=== PATIENT | male | born 1940 | race Caucasian/White ===

== ENCOUNTER 2016-05-11 12:09 | Outpatient (CLI) | payer MEDICARE, OTHER ==
[2016-05-11] MEDS ORDERED: NORMAL SALINE 1000 ML 1,000 ML IV PRN (12:47)
[2016-05-11] MEDS ORDERED: ACETAMINOPHEN 325 MG TABLET PO PRN (12:47)
[2016-05-11 12:48] LABS: HEMATOCRIT 26.9 % (37.9-51.0); HEMOGLOBIN 8.9 g/dL (13.5-17.0); HGB HCT DIFFERENCE -0.2; MEAN CORPUSCULAR HEMOGLOBIN 31.1 pg (27.0-33.4); MEAN CORPUSCULAR VOLUME 94 fl (80-97); RED BLOOD COUNT 2.86 10^6/uL (4.35-5.55); RED CELL DISTRIBUTION WIDTH 23.2 % (11.5-14.0)
[2016-05-11] MEDS ORDERED: FUROSEMIDE INJ/PF 20 MG/2 ML SDV IV PRN (12:48)
[2016-05-11] MEDS ORDERED: DIPHENHYDRAMINE HCL 25 MG CAPSULE PO PRN (12:48)
[2016-05-11 13:21] VITALS: BP 140/79
[2016-05-11] MEDS ORDERED: ACETAMINOPHEN 325 MG TABLET ONE (13:34)
[2016-05-11] MEDS ORDERED: DIPHENHYDRAMINE HCL 25 MG CAPSULE ONE (13:35)
[2016-05-11 19:03] LABS: APPEARANCE,URINE SLIGHTLY-CLOUDY; BILIRUBIN,URINE NEGATIVE (NEGATIVE); GLUCOSE, URINE NEGATIVE (NEGATIVE); KETONES,URINE NEGATIVE (NEGATIVE); LEUKOCYTE ESTERASE,URINE MODERATE (NEGATIVE); NITRITE,URINE NEGATIVE (NEGATIVE); PROTEIN,URINE NEGATIVE (NEGATIVE); URINE SPECIFIC GRAVITY 1.014; UROBILINOGEN,URINE NEGATIVE mg/dL (<2.0)
== END 2016-05-11 14:45 | disposition other institution (70) ==
LOC: II 12:09 → 2N 12:12 → II 14:45
PROVIDERS: ATTEND Internal Medicine Medical Oncology
PROC: 30243R1 Transfusion of Nonautologous Platelets into Central Vein, Percutaneous Approach (ICD-10-PCS; principal; 2016-05-11)
DX: D70.1 Agranulocytosis secondary to cancer chemotherapy (principal); D69.6 Thrombocytopenia, unspecified; C34.90 Malignant neoplasm of unspecified part of unspecified bronchus or lung; R11.0 Nausea; R41.82 Altered mental status, unspecified
CPT/HCPCS: 86900; 86901; 36415; 36430; 81002; P9035; A9270 ×2

== ENCOUNTER 2016-05-11 14:51 | Observation (INO) | payer MEDICARE, OTHER ==
[2016-05-11] MEDS ORDERED: DIPHENHYDRAMINE HCL 50 MG/ML VIAL IV ONE (14:59)
[2016-05-11] MEDS ORDERED: METHYLPREDNISOLONE INJ 125 MG/2 ML SDV IV ONE (14:59)
[2016-05-11] MEDS ORDERED: FAMOTIDINE INJ/PF 20 MG/2 ML SDV IV ONE (15:00)
--- NOTE | 2016-05-11 15:33 | ER Document Report ---
[id number] PAIN Mode of Arrival: Ambulatory Information source: Patient Notes: 76 yr old male with hx of thrombocytopenia, lung ca presents with complaints of allergic reaction while being transfused. pt immediately became diaphoretic, sob , hypoxic and tachycardic Patient has received transfusions in the past iwth no reaction. platelt count was 18 today. pt given benadryl before platelet TRAVEL OUTSIDE OF THE [place] IN LAST 30 DAYS: No - HPI Onset: Just prior to arrival Onset/Duration: Sudden Quality of pain: No pain Severity: Moderate Pain Level: Denies Associated symptoms: Shortness of breath, Other Exacerbated by: Denies Relieved by: Denies Similar symptoms previously: No Recently seen / treated by doctor: Yes - Related Data Allergies/Adverse Reactions: aspirin [Aspirin] Allergy (Unknown, Verified 02/25/16 16:37) acetaminophen [From Percocet] Allergy (Verified 02/26/16 02:01) oxycodone [From Percocet] Allergy (Verified 02/26/16 02:01) Past Medical History - Social History Smoking Status: Former Smoker Cigarette use (# per day): No Chew tobacco use (# tins/day): No Smoking Education Provided: No Family History: Reviewed & Not Pertinent - Past Medical History Cardiac Medical History: Reports: Hx Hypercholesterolemia, Hx Hypertension Neurological Medical History: Denies: Hx Seizures Malignancy Medical History: Reports Hx Lung Cancer Past Surgical History: Reports: Hx Cholecystectomy, Hx Orthopedic Surgery - Knee - Immunizations Hx Diphtheria, Pertussis, Tetanus Vaccination: - unk Hx Pneumococcal Vaccination: 03/08/14 Review of Systems - Review of Systems Notes: REVIEW OF SYSTEMS: CONSTITUTIONAL : Denies fever, chills, or sweats. Denies recent illness. EENT: Denies eye, ear, throat, or mouth pain or symptoms. Denies nasal or sinus congestion or discharge. Denies throat, tongue, or mouth swelling or difficulty swallowing. CARDIOVASCULAR: Admits to chest pain shortness of breath RESPIRATORY: Admits to difficulty breathing heart racing GASTROINTESTINAL: Denies abdominal pain or distention. Denies nausea, vomiting , or diarrhea. Denies blood in vomitus, stools, or per rectum. Denies black, tarry stools. Denies constipation. GENITOURINARY: Denies difficulty urinating, painful urination, burning, frequency, blood in urine, or discharge. MUSCULOSKELETAL: Denies back or neck pain or stiffness. Denies joint pain or swelling. SKIN: Denies rash, lesions or sores. HEMATOLOGIC : Denies easy bruising or bleeding. LYMPHATIC: Denies swollen, enlarged glands. NEUROLOGICAL: Denies confusion or altered mental status. Denies passing out or loss of consciousness. Denies dizziness or lightheadedness. Denies headache. Denies weakness or paralysis or loss of use of either side. Denies problems with gait or speech. Denies sensory loss, numbness, or tingling. Denies seizures. PSYCHIATRIC: Denies anxiety or stress. Denies depression, suicidal ideation, or homicidal ideation. ALL OTHER SYSTEMS REVIEWED AND NEGATIVE. Dictation was performed using [employer] voice recognition software PHYSICAL EXAMINATION: GENERAL: Well-appearing, well-nourished and in mild distress with a rebreather HEAD: Atraumatic, normocephalic. EYES: Pupils equal round and reactive to light, extraocular movements intact, sclera anicteric, conjunctiva are normal. ENT: Nares patent, oropharynx clear without exudates. Moist mucous membranes. NECK: Normal range of motion, supple without lymphadenopathy LUNGS: Breath sounds clear to auscultation bilaterally and equal. No wheezes rales or rhonchi. Initially hypoxic HEART: Tachycardic ABDOMEN: Soft, nontender, nondistended abdomen. No guarding, no rebound. No masses appreciated. Musculoskeletal: Normal range of motion, no pitting or edema. No cyanosis. NEUROLOGICAL: Cranial nerves grossly intact. Normal speech, normal gait. Normal sensory, motor exams PSYCH: Normal mood, normal affect. SKIN: Warm, Dry, normal turgor, no rashes or lesions noted. Physical Exam - Vital signs Vitals: Resp BP Pulse Ox 20 115/72 99 05/11/16 15:18 05/11/16 15:18 05/11/16 15:18 Course - Re-evaluation Re-evalutation: 05/11/16 15:32 Patient immediately started on medications for his allergic reaction, I will watch closely for worsening symptoms Spoke with Dr Torres who requests I speak with Dr Prasad regarding patient 05/11/16 15:[address] Prasad who agrees with admission process to watch for further allergic reaction, will defer on further platelets 05/11/16 15:56 - Vital Signs Vital signs: Temp Pulse Resp BP Pulse Ox 20 115/72 99 05/11/16 15:18 05/11/16 15:18 05/11/16 15:18 Critical Care Note - Critical Care Note Total time excluding time spent on procedures (mins): 34 Comments: minutes of critical care time spent in direct contact evaluating and reevaluating the patient, treating symptoms, reviewing labs and studies and speaking with family and consultants excluding any procedures Discharge - Discharge Clinical Impression: Thrombocytopenia, acute blood transfusion reaction, Tachycardia, Hypoxemia Lung cancer Qualifiers: Laterality: unspecified laterality Lung location: unspecified part of lung Qualified Code(s): C34.90 - Malignant neoplasm of unspecified part of unspecified bronchus or lung Condition: Stable Disposition: ADMITTED OBSERVATION Admitting Provider: Sofia Unit Admitted: Telemetry Referrals: JAMAL TORRES MD [Primary Care Provider] - Follow up as needed
[2016-05-11] MEDS ORDERED: DIPHENHYDRAMINE HCL 50 MG/ML VIAL IV PRN (17:47)
[2016-05-11] MEDS ORDERED: HYDROCODONE/ACETAMINOPHEN 5-325 MG TABLET PO PRN (17:50)
[2016-05-11 17:52] LABS: HEMATOCRIT 28.5 % (37.9-51.0); HEMOGLOBIN 9.2 g/dL (13.5-17.0); HGB HCT DIFFERENCE -0.9; MEAN CORPUSCULAR HEMOGLOBIN 30.6 pg (27.0-33.4); MEAN CORPUSCULAR HGB CONC 32.4 g/dL (32.0-36.0); MEAN CORPUSCULAR VOLUME 95 fl (80-97); RED BLOOD COUNT 3.01 10^6/uL (4.35-5.55); RED CELL DISTRIBUTION WIDTH 23.1 % (11.5-14.0)
[2016-05-11 17:58] LABS: ALANINE AMINOTRANSFERASE 40 U/L (21-72); ALBUMIN 2.2 g/dL (3.5-5.0); ALKALINE PHOSPHATASE 61 U/L (38-126); ANION GAP 7 (5-19); ASPARTATE AMINO TRANSFERASE 46 U/L (17-59); BILIRUBIN,TOTAL 0.7 mg/dL (0.2-1.3); BLOOD UREA NITROGEN 16 mg/dL (7-20); CALCIUM 7.4 mg/dL (8.4-10.2); CARBON DIOXIDE 25 mmol/L (22-30); CHLORIDE 105 mmol/L (98-107); CREATININE RESULT 1.13 mg/dL (0.52-1.25); GLUCOSE 150 mg/dL (75-110); POTASSIUM 3.7 mmol/L (3.6-5.0); SODIUM 137.1 mmol/L (137-145); TOTAL PROTEIN 4.5 g/dL (6.3-8.2)
[2016-05-11 18:08] LABS: BAND NEUTROPHILS % (MANUAL) 2 % (3-5); BASOPHILS % (MANUAL) 0 % (0-2); EOSINOPHILS % (MANUAL) 0 % (0-6); LYMPHOCYTES % (MANUAL) 11 % (13-45); TOTAL CELLS COUNTED 100
[2016-05-11 18:11] LABS: ANISOCYTOSIS 2+; OVALOCYTES SLIGHT; POIKILOCYTOSIS 1+; TEAR DROP CELLS SLIGHT; TOXIC GRANULATION SLIGHT
--- NOTE | 2016-05-11 18:18 | PDOC H&P ---
History of Present Illness Admission Date/PCP: 05/11/16 16:08 JAMAL FABIOLACarissa Patient complains of: Chest pain, Shortness of brreath History of Present Illness: KAMINI DIAMOND is a 76 year old male transferred to ED due to acute development of reported chest pain, tachycardia, shortness of breath, hypoxemia and diaphoresis during transfusion with platelet due to reported thrombocytopenia with platelet count of 18,000 earlier today. His transfusion was immediately discontinued and he was brought to the ED for further evaluation and management. Spouse reported that patient likewise received Neulasta and Epogen earlier today. His last chemotherapy for lung cancer was 01/2017 at [facility] under directive of Dr Prasad his medical oncologist. Patient did received pre-transfusion Benadryl and had so far received IV Solu-Medrol, Famotidine and Diphehydramine in ED. Spouse and patient reported significant swelling to lower extremities in the last couple of days. There is associated coughing spells that improved with Tessalon perles. Patient is currently on Levofloxacin therapy for probable upper respiratory infection. He denied definite fever but claimed been cold all the time. He admitted to nausea but no vomiting. P.o intake is fair. No reported diarrhea or symptoms suggestive of ongoing urinary tract infection. Past Medical History Cardiac Medical History: Reports: Hyperlipidema, Hypertension Pulmonary Medical History: Reports: Other - Lung cancer Neurological Medical History: Denies: Seizures Malignancy Medical History: Reports: Lung Cancer Past Surgical History Past Surgical History: Reports: Cholecystectomy, Orthopedic Surgery - Knee Social History Smoking Status: Former Smoker Frequency of Alcohol Use: None Hx Recreational Drug Use: No Hx Prescription Drug Abuse: No - Advance Directive Resuscitation Status: Full Code Family History Family History: Reviewed & Not Pertinent Parental Family History Reviewed: Yes Children Family History Reviewed: Yes Sibling(s) Family History Reviewed.: Yes Medication/Allergy Home Medications: Allopurinol [Zyloprim 100 mg Tablet] 100 mg PO DAILY 05/11/16 Benzonatate [Tessalon Perle 100 mg Capsule] 100 mg PO Q8HP PRN 05/11/16 Budesonide/Formoterol Fumarate [Symbicort Hfa 160-4.5 Mcg Inhaler 6 gm] 2 puff IH Q12 05/11/16 Cetirizine HCl [Zyrtec 10 mg Tablet] 10 mg PO DAILY 05/11/16 Furosemide [Lasix 20 mg Tablet] 20 mg PO QAM 05/11/16 Hydrocodone Bit/Acetaminophen [Hydrocodon-Acetaminophen 5-325] 1 tab PO Q6HP PRN 05/11/16 Ipratropium/Albuterol Sulfate [Duoneb 3 ml Ampul] 3 ml NEB RTQID 05/11/16 Levofloxacin [Levaquin 500 mg Tablet] 500 mg PO DAILY 05/11/16 Meclizine HCl 25 mg PO Q6 05/11/16 Metoprolol Succinate [Toprol Xl 25 mg Tab.sr] 25 mg PO DAILY 05/11/16 Montelukast Sodium [Singulair 10 mg Tablet] 10 mg PO DAILY 05/11/16 Ropinirole HCl [Requip] 0.5 mg PO QHS 05/11/16 Rosuvastatin Calcium [Crestor 10 mg Tablet] 10 mg PO DAILY 05/11/16 Tramadol HCl 50 mg PO Q8HP PRN 05/11/16 Allergies/Adverse Reactions: aspirin [Aspirin] Allergy (Unknown, Verified 02/25/16 16:37) acetaminophen [From Percocet] Allergy (Verified 02/26/16 02:01) oxycodone [From Percocet] Allergy (Verified 02/26/16 02:01) Physical Exam Vital Signs: Temp Pulse Resp BP Pulse Ox 21 H 118/66 99 05/11/16 16:28 05/11/16 16:28 05/11/16 16:28 General appearance: PRESENT: no acute distress, cooperative, obese Head exam: PRESENT: atraumatic, normocephalic Eye exam: PRESENT: conjunctiva pink, EOMI, PERRLA. ABSENT: scleral icterus Ear exam: PRESENT: normal external ear exam Mouth exam: PRESENT: moist, tongue midline Teeth exam: ABSENT: dental caries, dental tenderness, edentulous, poor dentation , other Throat exam: ABSENT: post pharyngeal erythema, tonsillar erythema, tonsillar exudate, tonsillogmegaly, other Neck exam: PRESENT: full ROM. ABSENT: carotid bruit, JVD, lymphadenopathy, thyromegaly Respiratory exam: PRESENT: decreased breath sounds - at lung bases, rhonchi, wheezes. ABSENT: accessory muscle use, chest wall tenderness, clear to auscultation med, crackles, prolonged expiratory phas, rales, retraction, stridor, symmetrical, tachypnea, unlabored, other Cardiovascular exam: PRESENT: RRR. ABSENT: diastolic murmur, rubs, systolic murmur GI/Abdominal exam: PRESENT: normal bowel sounds, soft. ABSENT: distended, guarding, mass, organolmegaly, rebound, tenderness Extremities exam: PRESENT: full ROM, pedal edema - bilateral pitting edema to knee level Musculoskeletal exam: PRESENT: deformity - from arthritis, full ROM Neurological exam: PRESENT: alert, awake, oriented to person, oriented to place , oriented to time, oriented to situation, CN II-XII grossly intact. ABSENT: motor sensory deficit Psychiatric exam: PRESENT: appropriate affect, normal mood. ABSENT: homicidal ideation, suicidal ideation Skin exam: PRESENT: petechiae - mainly on his legs. ABSENT: abrasion, cyanosis , dry, erythema, intact, jaundice, mottled, normal color, pallor, rash, skin tears, urticaria, vesicles, warm, other Results Laboratory Results: see [facility] lab section for details. These were reviewed and form part of my final clinical decision making. Assessment & Plan - Diagnosis (1) Transfusion reaction Qualifiers: Encounter type: initial encounter Qualified Code(s): T80.92XA - Unspecified transfusion reaction, initial encounter Is this a current diagnosis for this admission?: YesPlan: see admitting attending orders. At present, after discussion with Dr Prasad, further platelet transfusion is on hold. (2) Lung cancer Qualifiers: Laterality: unspecified laterality Lung location: unspecified part of lung Qualified Code(s): C34.90 - Malignant neoplasm of unspecified part of unspecified bronchus or lung Is this a current diagnosis for this admission?: YesPlan: see admitting attending orders. (3) Pancytopenia due to chemotherapy Is this a current diagnosis for this admission?: YesPlan: see admitting attending orders. (4) HTN (hypertension) Is this a current diagnosis for this admission?: YesPlan: See admitting physician orders. I will change Metoprolol succinate to tartrate formulary due to reported significant decrease in his blood pressure upon administration at home as per spouse report. (5) HLD (hyperlipidemia) Is this a current diagnosis for this admission?: YesPlan: See admitting physician orders (6) COPD (chronic obstructive pulmonary disease) Is this a current diagnosis for this admission?: YesPlan: See admitting physician orders - Time Time Spent: 50 to 70 Minutes Medications reviewed and adjusted accordingly: Yes Anticipated discharge: Home - Inpatient Certification Based on my medical assessment, after consideration of the patient's comorbidities, presenting symptoms, or acuity I expect that the services needed warrant INPATIENT care.: Yes I certify that my determination is in accordance with my understanding of Medicare's requirements for reasonable and necessary INPATIENT services [42 CFR 412.3e].: Yes Medical Necessity: Need Close Monitoring Due to Risk of Patient Decompensation, Need For Continuous Telemetry Monitoring, Risk of Complication if Not Cared For in Hospital Post Hospital Care: D/C Refrigeration Insulator Documentation - Plan Summary Plan Summary: see admitting attending orders.
[2016-05-11 18:27] LABS: PROTHROMBIN TIME 14.8 SEC (11.4-15.4)
[2016-05-11 18:28] LABS: PARTIAL THROMBOPLASTIN TIME 34.3 SEC (23.5-35.8)
[2016-05-11] MEDS: NORMAL SALINE 1000 ML 1,000 ML IV PRN (18:37)
[2016-05-11] MEDS ORDERED: LEVOFLOXACIN 500 MG TABLET PO ONE (19:15)
[2016-05-11] MEDS: IPRATROPIUM/ALBUTEROL 0.5-2.5 MG/3 ML AMPUL NEB SCH (21:26)
[2016-05-11] MEDS ORDERED: (PENDING PHARMACY ID) (Ropinirole Hcl [Requip] 0.5 MG) PO SCH (22:00)
[2016-05-11] MEDS ORDERED: METOPROLOL TARTRATE 25 MG TABLET PO SCH (22:00)
[2016-05-11] MEDS ORDERED: METHYLPREDNISOLONE INJ 40 MG/1 ML SDV IV SCH (22:00)
[2016-05-11] MEDS: BENZONATATE 100 MG CAPSULE PO SCH (22:58)
[2016-05-11] MEDS: FAMOTIDINE INJ/PF 20 MG/2 ML SDV IV SCH (22:58)
[2016-05-11] MEDS: METHYLPREDNISOLONE INJ 125 MG/2 ML SDV IV SCH (22:58)
[2016-05-11] MEDS: BUDESONIDE/FORMOTEROL 160-4.5 MCG 60 PUFF/6 GM MDI IH SCH (22:58)
[2016-05-11] MEDS: ROPINIROLE HCL 0.25 MG TABLET PO SCH (22:58)
[2016-05-11] MEDS: ATORVASTATIN CALCIUM 20 MG TABLET PO SCH (22:58)
[2016-05-12] MEDS: NORMAL SALINE 1000 ML 1,000 ML IV PRN (00:08)
[2016-05-12] MEDS: METHYLPREDNISOLONE INJ 125 MG/2 ML SDV IV SCH (06:12)
[2016-05-12] MEDS: BENZONATATE 100 MG CAPSULE PO SCH ×3 (06:12→21:34)
[2016-05-12] MEDS: IPRATROPIUM/ALBUTEROL 0.5-2.5 MG/3 ML AMPUL NEB SCH ×4 (07:50→20:08)
--- NOTE | 2016-05-12 08:22 | Physician Advisory Note ---
Physician Advisor ProgressNote .: Pursuant to the plan for [facility], I have reviewed the medical record for this patient. Physician Advisor Statement: Nice documentation of pancytopenia due to chemo. Possible documentation opportunities if attending agrees: 1. "obesity with BMI 40.5" 2. "Acute Hypoxemic Respiratory Failure, with initial hypoxemia & respiratory distress in ED (& before) requiring O2 by nonrebreather mask, resolved" - ED dr documented "in mild distress w/a rebreather", "initially hypoxic", & "tachycardic", but this co-morbidity cannot be captured unless attending re- states that this was so. - VS include O2 sat 89% at 16:01 on unspecified amount of O2, with HR 127. 3. Please specify type of lung CA, involved lobes including which side/ laterality, & locations of mets, as possible. As always, if concerned about any unstable VS or abnormal labs, please comment on them & note what doing about them, & please document each day the potential clinical problems you are concerned could occur if pt not kept in hospital for tx at this time. 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 Had already received Epogen & Neulasta that AM. Was on Levaquin due to suspected URI. (+)N (-)V, po intake "fair". Documented to have rhonchi, wheezes, decreased BS at bases, petechiae. (+) Initial HR 133, RR20-38, then O2 sat 89% w/BP 79/54 & HR 127. ED gave 2 NS IVF boluses, Solumedrol IV, .... Attending ordered ongoing IV Solumedrol, Duonebs q6h, Levaquin.... Status: Appropriate for Obs status. Has had ongoing tachycardia, but nursing note of 04 :22 states "HR @126, pt & state this has been nl lately", so this is apparently not a significant change from recent baseline. Tachypnea has resolved. If pt is not felt safe to go home today, please document clinical reasons, & then may be able to support change to Inpt status; however, it is expected that likely he will be able to go home today. Thanks for your help with documentation accuracy/specificity improvement! Isis Qureshi MD [facility] Physician Advisor, Fellow of [facility]
--- NOTE | 2016-05-12 09:03 | PDOC PROGRESS REPORT ---
Subjective Progress Note for:: 05/12/16 Subjective:: Patient reported persistent episodes of coughing spells. There is tachycardia on monitor. Remain on supplemental oxygen via nasal cannula. Denied chest pain. No significant nausea or vomiting since admission. No fever or chills. Physical Exam Vital Signs: Temp Pulse Resp BP Pulse Ox 97.6 F 99 20 121/68 93 05/11/16 22:05 05/12/16 07:54 05/12/16 07:54 05/11/16 22:05 05/12/16 07:54 Intake & Output 05/11/16 05/12/16 05/13/16 06:59 06:59 06:59 Output Total 400 Balance -400 Weight 113.9 kg General appearance: PRESENT: no acute distress, morbidly obese Head exam: PRESENT: atraumatic, normocephalic Eye exam: PRESENT: conjunctiva pink, EOMI, PERRLA Mouth exam: PRESENT: moist Neck exam: PRESENT: full ROM. ABSENT: carotid bruit, JVD, lymphadenopathy, thyromegaly Respiratory exam: PRESENT: decreased breath sounds - at lung bases. Cardiovascular exam: PRESENT: RRR. ABSENT: diastolic murmur, rubs, systolic murmur GI/Abdominal exam: PRESENT: normal bowel sounds, soft. ABSENT: distended, guarding, mass, organolmegaly, rebound, tenderness Extremities exam: PRESENT: full ROM, pedal edema - improving Musculoskeletal exam: PRESENT: deformity - due to joint arthritis, full ROM Neurological exam: PRESENT: alert, awake, oriented to person, oriented to place , oriented to time, oriented to situation, CN II-XII grossly intact. ABSENT: motor sensory deficit Skin exam: PRESENT: petechiae - mainly on legs and improving Results Laboratory Results: 05/11/16 20:25 Blood Type O POSITIVE Antibody Screen NEGATIVE Assessment & Plan - Diagnosis (1) Transfusion reaction Qualifiers: Encounter type: initial encounter Qualified Code(s): T80.92XA - Unspecified transfusion reaction, initial encounter Is this a current diagnosis for this admission?: YesPlan: Blood bank reported absence of platelet reaction after testing platelet and patient sera. At present, after discussion with Dr Prasad, no further platelet transfusion if platelet count is over 10,000. (2) Lung cancer Qualifiers: Laterality: left Lung location: upper lobe of lung Qualified Code(s): C34.12 - Malignant neoplasm of upper lobe, left bronchus or lung Is this a current diagnosis for this admission?: YesPlan: continue on current regimen as per his medical oncologist. (3) Pancytopenia due to chemotherapy Is this a current diagnosis for this admission?: Yes (4) HTN (hypertension) Is this a current diagnosis for this admission?: YesPlan: See admitting physician orders. I will increase Metoprolol Tartrate to 25 mg po bid in view of his tachycardia (5) HLD (hyperlipidemia) Is this a current diagnosis for this admission?: Yes (6) COPD (chronic obstructive pulmonary disease) Is this a current diagnosis for this admission?: Yes - Time Time Spent with patient: 25-34 minutes Medications reviewed and adjusted accordingly: Yes Within: within 48 hours - Inpatient Certification Medical Necessity: Need Close Monitoring Due to Risk of Patient Decompensation, Risk of Complication if Not Cared For in Hospital Post Hospital Care: D/C Automation Operator Documentation - Plan Summary Plan Summary: See attending physician order.
[2016-05-12] MEDS: FUROSEMIDE 20 MG TABLET PO SCH (09:41)
[2016-05-12] MEDS: MONTELUKAST SODIUM 10 MG TABLET PO SCH (09:43)
[2016-05-12] MEDS: LEVOFLOXACIN 500 MG TABLET PO SCH (09:43)
[2016-05-12] MEDS: ALLOPURINOL 100 MG TABLET PO SCH (09:43)
[2016-05-12] MEDS: METOPROLOL TARTRATE 25 MG TABLET PO SCH ×2 (09:43→21:34)
[2016-05-12] MEDS: FAMOTIDINE INJ/PF 20 MG/2 ML SDV IV SCH ×2 (09:44→21:34)
[2016-05-12] MEDS: METHYLPREDNISOLONE INJ 40 MG/1 ML SDV IV SCH ×2 (09:44→21:34)
[2016-05-12] MEDS: CETIRIZINE 10 MG TABLET PO SCH (09:44)
[2016-05-12] MEDS: BUDESONIDE/FORMOTEROL 160-4.5 MCG 60 PUFF/6 GM MDI IH SCH ×2 (09:45→21:34)
[2016-05-12] MEDS: ATORVASTATIN CALCIUM 20 MG TABLET PO SCH (21:34)
[2016-05-12] MEDS: ROPINIROLE HCL 0.25 MG TABLET PO SCH (21:34)
[2016-05-13] MEDS: BENZONATATE 100 MG CAPSULE PO SCH ×2 (05:46→13:45)
[2016-05-13] MEDS: IPRATROPIUM/ALBUTEROL 0.5-2.5 MG/3 ML AMPUL NEB SCH ×3 (07:42→16:33)
[2016-05-13] MEDS: FUROSEMIDE 20 MG TABLET PO SCH (08:37)
[2016-05-13] MEDS: FAMOTIDINE INJ/PF 20 MG/2 ML SDV IV SCH (09:36)
[2016-05-13] MEDS: BUDESONIDE/FORMOTEROL 160-4.5 MCG 60 PUFF/6 GM MDI IH SCH (09:36)
[2016-05-13] MEDS: METHYLPREDNISOLONE INJ 40 MG/1 ML SDV IV SCH (09:36)
[2016-05-13] MEDS: METOPROLOL TARTRATE 25 MG TABLET PO SCH (09:37)
[2016-05-13] MEDS: LEVOFLOXACIN 500 MG TABLET PO SCH (09:37)
[2016-05-13] MEDS: CETIRIZINE 10 MG TABLET PO SCH (09:37)
[2016-05-13] MEDS: ALLOPURINOL 100 MG TABLET PO SCH (09:37)
[2016-05-13] MEDS: MONTELUKAST SODIUM 10 MG TABLET PO SCH (09:38)
[2016-05-13 11:19] LABS: HEMATOCRIT 26.2 % (37.9-51.0); HEMOGLOBIN 8.7 g/dL (13.5-17.0); HGB HCT DIFFERENCE -0.1; MEAN CORPUSCULAR HEMOGLOBIN 31.3 pg (27.0-33.4); MEAN CORPUSCULAR HGB CONC 33.2 g/dL (32.0-36.0); MEAN CORPUSCULAR VOLUME 95 fl (80-97); RED BLOOD COUNT 2.77 10^6/uL (4.35-5.55); RED CELL DISTRIBUTION WIDTH 23.6 % (11.5-14.0)
[2016-05-13 11:47] LABS: ALANINE AMINOTRANSFERASE 37 U/L (21-72); ALBUMIN 2.2 g/dL (3.5-5.0); ALKALINE PHOSPHATASE 63 U/L (38-126); ANION GAP 12 (5-19); ASPARTATE AMINO TRANSFERASE 43 U/L (17-59); BILIRUBIN,TOTAL 0.3 mg/dL (0.2-1.3); BLOOD UREA NITROGEN 22 mg/dL (7-20); CARBON DIOXIDE 22 mmol/L (22-30); CHLORIDE 104 mmol/L (98-107); CREATININE RESULT 1.17 mg/dL (0.52-1.25); GLUCOSE 182 mg/dL (75-110); SODIUM 137.9 mmol/L (137-145); TOTAL PROTEIN 4.6 g/dL (6.3-8.2)
[2016-05-13 11:51] LABS: WHITE BLOOD COUNT 14.7 10^3/uL (4.0-10.5)
[2016-05-13 11:53] LABS: BASOPHILS % (MANUAL) 0 % (0-2); EOSINOPHILS % (MANUAL) 0 % (0-6); LYMPHOCYTES % (MANUAL) 4 % (13-45); NUCLEATED RED BLOOD CELLS 1 /100 WBC (0); POLYCHROMASIA 1+; TOTAL CELLS COUNTED 100
[2016-05-13 11:54] LABS: ANISOCYTOSIS 3+; OVALOCYTES 1+; POIKILOCYTOSIS 1+; TEAR DROP CELLS SLIGHT
--- NOTE | 2016-05-13 18:37 | PDOC DISCHARGE SUMMARY ---
General - Admit/Disc Date/PCP Admission Date/Primary Care Provider: 05/11/16 17:45 JAMALCHARLENE TORRES Discharge Date: 05/13/16 - Discharge Diagnosis (1) Transfusion reaction Is this a current diagnosis for this admission?: Yes (2) Lung cancer Is this a current diagnosis for this admission?: Yes (3) Pancytopenia due to chemotherapy Is this a current diagnosis for this admission?: Yes (4) HTN (hypertension) Is this a current diagnosis for this admission?: Yes (5) HLD (hyperlipidemia) Is this a current diagnosis for this admission?: Yes (6) COPD (chronic obstructive pulmonary disease) Is this a current diagnosis for this admission?: Yes - Additional Information Resuscitation Status: Full Code Home Medications: Allopurinol [Zyloprim 100 mg Tablet] 100 mg PO DAILY 05/11/16 Benzonatate [Tessalon Perle 100 mg Capsule] 100 mg PO Q8HP PRN 05/11/16 Budesonide/Formoterol Fumarate [Symbicort Hfa 160-4.5 Mcg Inhaler 6 gm] 2 puff IH Q12 05/11/16 Cetirizine HCl [Zyrtec 10 mg Tablet] 10 mg PO DAILY 05/11/16 Furosemide [Lasix 20 mg Tablet] 20 mg PO QAM 05/11/16 Hydrocodone Bit/Acetaminophen [Hydrocodon-Acetaminophen 5-325] 1 tab PO Q6HP PRN 05/11/16 Ipratropium/Albuterol Sulfate [Duoneb 3 ml Ampul] 3 ml NEB RTQID 05/11/16 Levofloxacin [Levaquin 500 mg Tablet] 500 mg PO DAILY 05/11/16 Meclizine HCl 25 mg PO Q6 05/11/16 Metoprolol Succinate [Toprol Xl 25 mg Tab.sr] 25 mg PO DAILY 05/11/16 Montelukast Sodium [Singulair 10 mg Tablet] 10 mg PO DAILY 05/11/16 Ropinirole HCl [Requip] 0.5 mg PO QHS 05/11/16 Rosuvastatin Calcium [Crestor 10 mg Tablet] 10 mg PO DAILY 05/11/16 Tramadol HCl 50 mg PO Q8HP PRN 05/11/16 History of Present Illness History of Present Illness: KAMINI DIAMOND is a 76 year old male transferred to ED due to acute development of reported chest pain, tachycardia, shortness of breath, hypoxemia and diaphoresis during transfusion with platelet due to reported thrombocytopenia with platelet count of 18,000 earlier today. His transfusion was immediately discontinued and he was brought to the ED for further evaluation and management. Spouse reported that patient likewise received Neulasta and Epogen earlier today. His last chemotherapy for lung cancer was 01/2017 at [facility] under directive of Dr Prasad his medical oncologist. Patient did received pre-transfusion Benadryl and had so far received IV Solu-Medrol, Famotidine and Diphehydramine in ED. Spouse and patient reported significant swelling to lower extremities in the last couple of days. There is associated coughing spells that improved with Tessalon perles. Patient is currently on Levofloxacin therapy for probable upper respiratory infection. He denied definite fever but claimed been cold all the time. He admitted to nausea but no vomiting. P.o intake is fair. No reported diarrhea or symptoms suggestive of ongoing urinary tract infection. Hospital Course Hospital Course: Patient responded to IV steroid, H-2 beth and anti histamine therapy for his anaphylactic event during platelet transfusion. He has been tapered of IV Solu Medrol, Famotidine and Diphehydramine therapy. There is persistence of thrombocytopenia and anemia but his leukopenia did improve post neulasta administration prior to admission. His coughing necessitated chest X ray during this hospitalization that did not show any acute pathologic process. His medical oncologist, Dr Prasad did recommend no platelet transfusion unless count is less than 10,000. Patient have been instructed to follow up with her. Physical Exam Vital Signs: Temp Pulse Resp BP Pulse Ox 98.1 F 96 20 95/67 L 97 05/13/16 11:38 05/13/16 14:00 05/13/16 11:38 05/13/16 11:38 05/13/16 11:38 Intake & Output 05/12/16 05/13/16 05/14/16 06:59 06:59 06:59 Intake Total 958 550 Output Total 400 Balance -400 958 550 Weight 113.9 kg General appearance: PRESENT: no acute distress, morbidly obese Head exam: PRESENT: atraumatic, normocephalic Eye exam: PRESENT: conjunctiva pink, EOMI, PERRLA Mouth exam: PRESENT: moist Respiratory exam: PRESENT: decreased breath sounds - at bases Cardiovascular exam: PRESENT: RRR. ABSENT: diastolic murmur, rubs, systolic murmur GI/Abdominal exam: PRESENT: normal bowel sounds, soft. ABSENT: distended, guarding, mass, organolmegaly, rebound, tenderness Extremities exam: PRESENT: full ROM, pedal edema Musculoskeletal exam: PRESENT: deformity - due to arthritis involvement, full ROM Neurological exam: PRESENT: alert, awake, CN II-XII grossly intact, motor sensory deficit Psychiatric exam: PRESENT: appropriate affect, normal mood. ABSENT: homicidal ideation, suicidal ideation Skin exam: PRESENT: petechiae - on extremities Results Laboratory Results: 05/13/16 10:44 05/13/16 10:44 05/13/16 05/13/16 10:44 10:44 WBC 14.7 H D RBC 2.77 L Hgb 8.7 L Hct 26.2 L MCV 95 MCH 31.3 MCHC 33.2 RDW 23.6 H Plt Count 14 L* Seg Neutrophils % Not Reportable Lymphocytes % Not Reportable Monocytes % Not Reportable Eosinophils % Not Reportable Basophils % Not Reportable Absolute Neutrophils Not Reportable Absolute Lymphocytes Not Reportable Absolute Monocytes Not Reportable Absolute Eosinophils Not Reportable Absolute Basophils Not Reportable Sodium 137.9 Potassium 4.0 Chloride 104 Carbon Dioxide 22 Anion Gap 12 BUN 22 H Creatinine 1.17 Est GFR ( Amer) > 60 Est GFR (Non-Af Amer) > 60 Glucose 182 H Calcium 8.0 L Total Bilirubin 0.3 AST 43 ALT 37 Alkaline Phosphatase 63 Total Protein 4.6 L Albumin 2.2 L Impressions: Chest X-Ray 05/13/16 00:00 IMPRESSION: Post therapeutic changes left upper lobe. No acute infiltrates Qualifiers PATEINT BEING DISCHARGED WITH ANY OF THE FOLLOWING DIAGNOSIS?: No Plan Discharge Plan: see attending physician discharge orders. He will follow up with me and Dr. Prasad as instructed upon discharge. Time Spent: Greater than 30 Minutes - I discussed post discharge care plan with patient and spouse.
[2016-05-13 19:02] VITALS: BP 142/84
== END 2016-05-13 19:05 | disposition home or self-care (01) ==
LOC: ER 14:51 → EH 16:08 → UNDOADMOB 16:08 → EH 17:45 → 4N 22:22
PROVIDERS: ADMIT Internal Medicine Geriatric Medicine; ATTEND Internal Medicine Geriatric Medicine
DX: T80.89XA Other complications following infusion, transfusion and therapeutic injection, initial encounter (principal); R07.9 Chest pain, unspecified; R00.0 Tachycardia, unspecified; R06.02 Shortness of breath; R09.02 Hypoxemia; D61.810 Antineoplastic chemotherapy induced pancytopenia; C34.90 Malignant neoplasm of unspecified part of unspecified bronchus or lung; I10 Essential (primary) hypertension; E78.5 Hyperlipidemia, unspecified; J44.9 Chronic obstructive pulmonary disease, unspecified
CPT/HCPCS: 99291; 96361; 96374; 96375; 86900; 86901; 36415 ×2; 86850; 85025 ×2; 85610; 85730; 80053 ×2; 71020; 94640 ×3; G0378 ×4; A9270 ×21; J1200; J3490; J2920 ×2; J2930 ×2; J7030; S0028 ×3; J7620

== ENCOUNTER → 2016-06-21 | Outpatient (CLI) | payer MEDICARE, OTHER | LOC: RAD 18:07 | PROVIDERS: ATTEND Internal Medicine Medical Oncology | DX: C34.92 Malignant neoplasm of unspecified part of left bronchus or lung (principal) | CPT/HCPCS: 78815; A9552 ==

== ENCOUNTER → 2016-08-05 | Outpatient (CLI) | payer MEDICARE, OTHER | LOC: OD 12:59 | PROVIDERS: ATTEND Internal Medicine Medical Oncology | DX: C34.92 Malignant neoplasm of unspecified part of left bronchus or lung (principal) | CPT/HCPCS: 71020 ==

== ENCOUNTER 2016-09-29 10:31 | Inpatient (IN) | payer MEDICARE, OTHER ==
--- NOTE | 2016-09-29 11:06 | ER Document Report ---
ED General - General Information source: Patient, Relative - TRAVEL OUTSIDE OF THE [place] IN LAST 30 DAYS: No - HPI Patient complains to provider of: Altered Mental Status Onset: Just prior to arrival Onset/Duration: Gradual, Worse Associated symptoms: Nonproductive cough, Other - constipation Recently seen / treated by doctor: Yes - Dco <CELINA CORDOVA - Last Filed: 09/29/16 14:13> <GUSTAVO KLEIN - Last Filed: 10/06/16 03:43> - General Chief Complaint: Altered Mental Status Stated Complaint: SHORT OF BREATH Time Seen by Provider: 09/29/16 10:45 Notes: Patient is a 76-year-old male, history of small cell lung cancer, presenting to the emergency department accompanied by his who is concerned that he has altered mental status onset over the weekend. Patients states that it has been progressively worsening, patient was talking out of his head and confused. Patient's states that the patient thinks that it has been raining through the roof, he thinks he has been picking up nails and seeing animals in the house. Patient's states that he is had more difficulty ambulating, now he needs assistance anytime he walks. Patient's states that he fell 3 times over the weekend. Patient's chief complaint is that he "might coughing." Patient's denies any nausea, vomiting, diarrhea, or bloody stools, but states that the patient has been somewhat constipated. (CELINA CORDOVA) - Related Data Allergies/Adverse Reactions: aspirin [Aspirin] Allergy (Unknown, Verified 02/25/16 16:37) acetaminophen [From Percocet] Allergy (Verified 02/26/16 02:01) oxycodone [From Percocet] Allergy (Verified 02/26/16 02:01) Home Medications: Current Home Medications Benzonatate [Tessalon Perle 100 mg Capsule] 100 mg PO Q8HP PRN 09/29/16 [History ] Furosemide [Lasix 20 mg Tablet] 20 mg PO DAILYP PRN 09/29/16 [History] Ipratropium/Albuterol Sulfate [Duoneb 3 ml Ampul] 3 ml NEB RTQIDP PRN 09/29/16 [ History] Meclizine HCl [Antivert 25 mg Tablet] 25 mg PO Q6HP PRN 09/29/16 [History] Metoprolol Tartrate [Lopressor 25 mg Tablet] 12.5 mg PO DAILY 09/29/16 [History] Past Medical History - General Information source: Patient, Relative - Spouse - Social History Smoking Status: Former Smoker Drug Abuse: None Lives with: Spouse/Significant other Family History: Reviewed & Not Pertinent - Past Medical History Cardiac Medical History: Reports: Hx Hypercholesterolemia, Hx Hypertension Neurological Medical History: Denies: Hx Seizures Malignancy Medical History: Reports Hx Lung Cancer - dx mar 2014 Past Surgical History: Reports: Hx Cholecystectomy, Hx Orthopedic Surgery - Knee - Immunizations Hx Diphtheria, Pertussis, Tetanus Vaccination: - unk Hx Pneumococcal Vaccination: 03/08/14 <CELINA CORDOVA - Last Filed: 09/29/16 14:13> Review of Systems - Review of Systems Constitutional: No symptoms reported EENT: No symptoms reported Cardiovascular: No symptoms reported Respiratory: See HPI, Cough Gastrointestinal: See HPI, Constipation. denies: Diarrhea, Nausea, Vomiting, Blood streaked bowels Genitourinary: No symptoms reported Male Genitourinary: No symptoms reported Musculoskeletal: No symptoms reported Skin: No symptoms reported Hematologic/Lymphatic: No symptoms reported Neurological/Psychological: No symptoms reported <CELINA CORDOVA - Last Filed: 09/29/16 14:13> Physical Exam - General General appearance: Alert - Altered mental status - HEENT Head: Normocephalic, Atraumatic Eyes: Normal Pupils: PERRL - Respiratory Respiratory status: No respiratory distress Chest status: Nontender Breath sounds: Normal Chest palpation: Normal - Cardiovascular Rhythm: Regular Heart sounds: Normal auscultation Murmur: No - Abdominal Inspection: Normal Distension: No distension Bowel sounds: Normal Tenderness: Nontender Organomegaly: No organomegaly - Back Back: Normal, Nontender - Extremities General upper extremity: Normal inspection, Nontender General lower extremity: Normal inspection, Nontender - Neurological Cognition: Confused Orientation: Disoriented to time, Disoriented to events. No: Disoriented to person, Disoriented to place [place] Coma Scale Eye Opening: Spontaneous [place] Coma Scale Verbal: Confused [place] Coma Scale Motor: Obeys Commands [place] Coma Scale Total: 14 Additional motor exam normals: Equal mystery shopper - Psychological Associated symptoms: Normal affect, Confused - Skin Skin Temperature: Warm Skin Moisture: Dry Skin Color: Normal <CELINA CORDOVA Last Filed: 09/29/16 14:13> <GUSTAVO KLEIN - Last Filed: 10/06/16 03:43> - Vital signs Vitals: Resp 18 09/29/16 10:35 - Neurological Notes: Unable to ambulate secondary to concern for fall (CELINA CORDOVA) Course - Laboratory Result Diagrams: 09/29/16 11:15 09/29/16 11:15 - Consults Dr. Black Time consulted: 13:50 <KARINE CORDOVAICA - Last Filed: 09/29/16 14:13> - Laboratory Result Diagrams: 10/03/16 09:19 10/03/16 09:19 <GUSTAVO KLEIN - Last Filed: 10/06/16 03:43> - Re-evaluation Re-evalutation: 09/29/16 13:51 Patient presents the emergency department from Dr. Prasad's office with his with a chief complaint of shortness of breath and confusion. Patient is a known small cell lung cancer patient with a history of respiratory failure and pancytopenia over the weekend his says he has been increasingly confused and has fallen 3 times no associated injuries with the fall her and her son had to pick him up at the home. He had a PET scan last Wednesday at an outlying facility that they are waiting for results on and his last chemotherapy dose was last Wednesday. He does not have any fevers chills nausea vomiting diarrhea cough. Dr. Prasad was concerned about when he came in for his blood work today and said he was having slurred speech. Did not ambulate the patient because she said he is unsteady gait he is alert and oriented to person and place but not time or date recognizes his and is moving all extremities no focal neurological deficits negative CT of the head. Chest x-ray shows a mass but no associated infiltrate no urinary tract infection he has a low potassium was given potassium here. I spoke with Dr. Prasad she is concerned about a TIA or stroke as well as metastatic disease which she states she was better on an MRI I spoke with Dr. lan can admit patient to the hospital for inpatient evaluation and MRI. (GUSTAVO KLEIN) - Vital Signs Vital signs: Temp Pulse Resp BP Pulse Ox 99.0 F 108 H 22 H 100/64 94 10/05/16 20:16 10/06/16 02:00 10/05/16 20:16 10/05/16 20:16 10/05/16 20:16 - Laboratory Laboratory results interpreted by me: 09/29/16 09/29/16 09/29/16 11:15 11:15 11:30 RBC 4.13 L Hgb 12.2 L Hct 36.7 L RDW 16.1 H Plt Count Sodium 134.4 L Potassium 3.0 L* Chloride Glucose 118 H Calcium 10.3 H Albumin 2.6 L Urine Blood LARGE H 09/30/16 09/30/16 09/30/16 07:30 07:30 18:55 RBC 3.99 L 4.12 L Hgb 11.9 L 12.1 L Hct 35.4 L 37.2 L RDW 16.1 H 16.0 H Plt Count 133 L 127 L Sodium 136.8 L Potassium 3.5 L Chloride Glucose Calcium 10.5 H Albumin 2.3 L Urine Blood 09/30/16 10/01/16 18:55 05:40 RBC Hgb Hct RDW Plt Count Sodium 136.7 L 136.8 L Potassium 3.4 L Chloride 109 H Glucose 124 H Calcium 10.4 H 10.4 H Albumin Urine Blood - Consults Dr. Black Reason for consultation: 09/29/16 14:14 discussed patient's case with Dr. Black, who agrees to accept the patient to telemetry for observation. (CELINA CORDOVA) Critical Care Note - Critical Care Note Total time excluding time spent on procedures (mins): 65 <GUSTAVO KLEIN - Last Filed: 10/06/16 03:43> Discharge <CELINA CORDOVA - Last Filed: 09/29/16 14:13> - Discharge Admitting Provider: [facility] Unit Admitted: Telemetry <GUSTAVO KLEIN - Last Filed: 10/06/16 03:43> - Discharge Clinical Impression: Hypokalemia Altered mental status Qualifiers: Altered mental status type: transient alteration of awareness Qualified Code(s) : R40.4 - Transient alteration of awareness Condition: Stable Disposition: ADMITTED OBSERVATION Scribe Attestation: 09/29/16 13:51 I personally performed the services described in the documentation reviewed the documentation recorded by my scribe in my presence and it accurately and completely records my words and actions (GUSTAVO KLEIN) Scribe Documentation - Scribe Written by Galindo:: Galindo Haley, 09/29/2016 1105 acting as scribe for :: Nikhil <CELINA CORDOVA - Last Filed: 09/29/16 14:13>
[2016-09-29 11:43] LABS: ABSOLUTE EOSINOPHILS # (AUTO) 0.1 10^3/uL (0.0-0.6); ABSOLUTE LYMPHOCYTES (AUTO) 1.7 10^3/uL (0.5-4.7); ABSOLUTE MONOCYTES (AUTO) 1.1 10^3/uL (0.1-1.4); ABSOLUTE NEUT (AUTO) 7.7 10^3/uL (1.7-8.2); BASOPHILS % (AUTO) 0.3 % (0-2); EOSINOPHILS % (AUTO) 0.6 % (0-6); HEMATOCRIT 36.7 % (37.9-51.0); HEMOGLOBIN 12.2 g/dL (13.5-17.0); HGB HCT DIFFERENCE -0.1; LYMPHOCYTES % (AUTO) 15.8 % (13-45); MEAN CORPUSCULAR HEMOGLOBIN 29.5 pg (27.0-33.4); MEAN CORPUSCULAR HGB CONC 33.2 g/dL (32.0-36.0); MEAN CORPUSCULAR VOLUME 89 fl (80-97); MONOCYTES % (AUTO) 10.5 % (3-13); RED BLOOD COUNT 4.13 10^6/uL (4.35-5.55); RED CELL DISTRIBUTION WIDTH 16.1 % (11.5-14.0); SEGMENTED NEUTROPHILS % (AUTO) 72.8 % (42-78); WHITE BLOOD COUNT 10.5 10^3/uL (4.0-10.5)
[2016-09-29 11:52] LABS: APPEARANCE,URINE SLIGHTLY-CLOUDY; BILIRUBIN,URINE NEGATIVE (NEGATIVE); GLUCOSE, URINE NEGATIVE (NEGATIVE); KETONES,URINE NEGATIVE (NEGATIVE); LEUKOCYTE ESTERASE,URINE NEGATIVE (NEGATIVE); NITRITE,URINE NEGATIVE (NEGATIVE); PROTEIN,URINE NEGATIVE (NEGATIVE); URINE SPECIFIC GRAVITY 1.014; UROBILINOGEN,URINE NEGATIVE mg/dL (<2.0)
[2016-09-29 12:02] LABS: ALANINE AMINOTRANSFERASE 36 U/L (21-72); ALBUMIN 2.6 g/dL (3.5-5.0); ALKALINE PHOSPHATASE 101 U/L (38-126); ANION GAP 9 (5-19); ASPARTATE AMINO TRANSFERASE 47 U/L (17-59); BILIRUBIN,DIRECT 0.4 mg/dL (0.0-0.4); BILIRUBIN,TOTAL 0.9 mg/dL (0.2-1.3); BLOOD UREA NITROGEN 11 mg/dL (7-20); CALCIUM 10.3 mg/dL (8.4-10.2); CARBON DIOXIDE 24 mmol/L (22-30); CHLORIDE 101 mmol/L (98-107); CREATININE RESULT 1.12 mg/dL (0.52-1.25); GLUCOSE 118 mg/dL (75-110); LIPASE 264.7 U/L (23-300); SODIUM 134.4 mmol/L (137-145); TOTAL PROTEIN 6.8 g/dL (6.3-8.2)
--- NOTE | 2016-09-29 12:06 | RADIOLOGY REPORT (SQ) ---
EXAM DESCRIPTION: CT HEAD WITHOUT COMPLETED DATE/TIME: 09/29/2016 11:49 am REASON FOR STUDY: ams COMPARISON: July 2012 TECHNIQUE: Axial images acquired through the brain without intravenous contrast. Images reviewed wi th bone, brain and subdural windows. Images stored on PACS. All CT scanners at this facility use dose modulation, iterative reconstruction, and/or weight based d osing when appropriate to reduce radiation dose to as low as reasonably achievable (ALARA). [facility]: Dose Right [facility]: CareDose [facility]: Dose Right [facility]: Teradose 4D [facility]: Birthday Gorilla RADIATION DOSE: 64.13 mGy. LIMITATIONS: None. FINDINGS: VENTRICLES: Prominent. CEREBRUM: No masses. No hemorrhage. No midline shift. Areas of low density in the white matter mos t likely due to chronic micro-vascular ischemic change. No evidence for acute infarction. CEREBELLUM: No masses. No hemorrhage. No alteration of density. No evidence for acute infarction. EXTRAAXIAL SPACES: Mild age-related involutional change. No fluid collections. No masses. ORBITS AND GLOBE: No intra- or extraconal masses. Normal contour of globe without masses. CALVARIUM: No fracture. PARANASAL SINUSES: No fluid or mucosal thickening. SOFT TISSUES: No mass or hematoma. OTHER: No other significant finding. IMPRESSION: MILD CHRONIC CHANGES OF ATROPHY AND MICROVASCULAR ISCHEMIA. NO ACUTE PROCESS. TECHNICAL DOCUMENTATION: JOB ID: [id number] Quality ID # [id number]: Final reports with documentation of one or more dose reduction techniques (e.g., Au tomated exposure control, adjustment of the mA and/or kV according to patient size, use of iterative reconstruction technique) 2010 [employer]- All Rights Reserved
--- NOTE | 2016-09-29 12:09 | RADIOLOGY REPORT (SQ) ---
EXAM DESCRIPTION: CHEST SINGLE VIEW COMPLETED DATE/TIME: 09/29/2016 11:53 am REASON FOR STUDY: sob COMPARISON: July 2016 EXAM PARAMETERS: NUMBER OF VIEWS: One view. TECHNIQUE: Single frontal radiographic view of the chest acquired. RADIATION DOSE: NA LIMITATIONS: None. FINDINGS: LUNGS AND PLEURA: The previously described pleural and parenchymal changes in the left hem ithorax are again identified. The previously described known mass in the left upper lobe shows inter [place] increase in size. The right lung remains clear. MEDIASTINUM AND HILAR STRUCTURES: Left hilum is obscured due to adjacent densities. HEART AND VASCULAR STRUCTURES: Cardiac silhouette is partially obscured due to adjacent densities. BONES: No acute findings. HARDWARE: Port-A-Cath is unchanged in position. Surgical clips are again identified projected in the left mid hemithorax. OTHER: No other significant finding. IMPRESSION: The previously described pleural and parenchymal changes in the left hemithorax are agai n identified. The previously described non mass in the left upper lobe shows interval increase in si ze. The right lung remains clear. Other findings as noted above TECHNICAL DOCUMENTATION: JOB ID: [id number]
[2016-09-29] MEDS ORDERED: POTASSIUM CHLORIDE 20 MEQ/15 ML UDCUP PO ONE (12:13)
--- NOTE | 2016-09-29 12:16 | EKG REPORT ---
SEVERITY:- ABNORMAL ECG - SINUS TACHYCARDIA SUPRAVENTRICULAR BIGEMINY LEFT AXIS DEVIATION ABNRM R PROG, CONSIDER ASMI OR LEAD PLACEMENT : Confirmed by: Renee Lyons MD 29-Sep-2016 12:15:41
[2016-09-29 12:39] LABS: CREATINE KINASE MB 0.34 ng/mL (<4.55)
[2016-09-29 12:43] LABS: TROPONIN I < 0.012 ng/mL
[2016-09-29] MEDS ORDERED: FUROSEMIDE 20 MG TABLET PO PRN (18:12)
[2016-09-29] MEDS ORDERED: MECLIZINE HCL 25 MG TABLET PO PRN (18:12)
--- NOTE | 2016-09-29 19:00 | PDOC H&P ---
History of Present Illness Admission Date/PCP: 09/29/16 14:05 JAMAL TORRES Patient complains of: Altered mental status, slurred speech, confusion History of Present Illness: KAMINI DIAMOND is a 76 year old male known to my practice who presented to ED with complain of progressive altered mental status oer last couple of days. Patient has history of lung cancer with recent PET scan suggestive of multi- organ metastases. Spouse reported reported episodes of auditory hallucination and disorientation. There has been multiple episodes of fall over the last 3 days with associated ambulatory difficulty. Spouse reported 2 person assistance. No significant sputum production. No associated fever or chills. No chest pain. His appetite and p.o intake did show some improvement with recent use of Megace and liberal food choices. No abdominal pain, nausea, vomiting, or diarrhea. There is associated constipation. She was seen at Dr. Prasad's office earlier today with reported witnessed slurred speech and confusion. He was subsequently referred to the ED for further evaluation and management. His initial assessment revealed uneventful Head CAT scan, slightly elevated serum calcium level. His comorbidites include hypertension and Hyperlipidemia. He was advised admission to observation bed for further evaluation and management for possible TIA versus brain metastasis in view of his metastatic lung cancer. Past Medical History Cardiac Medical History: Reports: Hyperlipidema, Hypertension Neurological Medical History: Denies: Seizures Malignancy Medical History: Reports: Lung Cancer - dx mar 2014 Past Surgical History Past Surgical History: Reports: Cholecystectomy, Orthopedic Surgery - Knee Social History Lives with: Spouse/Significant other Smoking Status: Former Smoker Frequency of Alcohol Use: None Hx Recreational Drug Use: No Hx Prescription Drug Abuse: No - Advance Directive Resuscitation Status: Full Code - Despite extensive discussion about his current metastatic lung cancer, patient verbalized and witnessed by spouse at bedside to be a full code. Family History Family History: Reviewed & Not Pertinent Parental Family History Reviewed: Yes Children Family History Reviewed: Yes Sibling(s) Family History Reviewed.: Yes Medication/Allergy Home Medications: Benzonatate [Tessalon Perle 100 mg Capsule] 100 mg PO Q8HP PRN 09/29/16 Furosemide [Lasix 20 mg Tablet] 20 mg PO DAILYP PRN 09/29/16 Ipratropium/Albuterol Sulfate [Duoneb 3 ml Ampul] 3 ml NEB RTQIDP PRN 09/29/16 Meclizine HCl [Antivert 25 mg Tablet] 25 mg PO Q6HP PRN 09/29/16 Metoprolol Tartrate [Lopressor 25 mg Tablet] 12.5 mg PO DAILY 09/29/16 Allergies/Adverse Reactions: aspirin [Aspirin] Allergy (Unknown, Verified 02/25/16 16:37) acetaminophen [From Percocet] Allergy (Verified 02/26/16 02:01) oxycodone [From Percocet] Allergy (Verified 02/26/16 02:01) Review of Systems Constitutional: PRESENT: anorexia, fatigue. ABSENT: as per HPI, chills, fever(s ), headache(s), night sweats, weakness, weight gain, weight loss, other Eyes: PRESENT: visual disturbances Ears: PRESENT: hearing changes Nose, Mouth, and Throat: ABSENT: as per HPI, headache(s), mouth pain, sore throat, vertigo, other Cardiovascular: PRESENT: dyspnea on exertion - long standing and related to COPD. ABSENT: as per HPI, chest pain, edema, orthropnea, palpitations, other Respiratory: PRESENT: cough, dyspnea - long standing and related to COPD. ABSENT: as per HPI, hemoptysis, sputum, other Gastrointestinal: PRESENT: constipation. ABSENT: as per HPI, abdominal pain, bloating, coffee ground emesis, diarrhea, dysphagia, heartburn, hematemesis, hematochezia, melena, nausea, vomiting, other Genitourinary: ABSENT: dysuria, hematuria Musculoskeletal: ABSENT: joint swelling Integumentary: ABSENT: rash, wounds Neurological: PRESENT: abnormal gait, abnormal speech, confusion, frequent falls , weakness - generalized Psychiatric: PRESENT: hallucinations. ABSENT: as per HPI, anxiety, depression, homidical ideation, suicidal ideation, other Endocrine: ABSENT: as per HPI, cold intolerance, flushing, heat intolerance, polydipsia, polyphagia, polyuria, other Hematologic/Lymphatic: ABSENT: easy bleeding, easy bruising, lymphadenopathy Physical Exam Vital Signs: Temp Pulse Resp BP Pulse Ox 97.6 F 74 21 H 102/66 100 09/29/16 16:34 09/29/16 16:34 09/29/16 16:34 09/29/16 16:34 09/29/16 16:34 General appearance: PRESENT: mild distress Head exam: PRESENT: atraumatic, normocephalic Eye exam: PRESENT: conjunctiva pink, EOMI, PERRLA. ABSENT: scleral icterus Mouth exam: PRESENT: moist Throat exam: ABSENT: post pharyngeal erythema, tonsillar erythema, tonsillar exudate, tonsillogmegaly, other Neck exam: PRESENT: full ROM. ABSENT: carotid bruit, JVD, lymphadenopathy, thyromegaly Respiratory exam: PRESENT: decreased breath sounds, rhonchi, wheezes Cardiovascular exam: PRESENT: RRR. ABSENT: diastolic murmur, rubs, systolic murmur Vascular exam: PRESENT: normal capillary refill GI/Abdominal exam: PRESENT: normal bowel sounds, soft. ABSENT: distended, guarding, mass, organolmegaly, rebound, tenderness Rectal exam: PRESENT: deferred Extremities exam: ABSENT: pedal edema Musculoskeletal exam: PRESENT: deformity - due to multiple joint arthric changes involvement Neurological exam: PRESENT: altered, oriented to situation - intermittent confusion with incoherent speech or tangential responses, abnormal gait Psychiatric exam: PRESENT: anxious Skin exam: PRESENT: dry, intact, warm. ABSENT: cyanosis, rash Results Laboratory Results: See [facility] for detail of laboratory findings. These form a significant part of my medical decision making. Impressions: Chest X-Ray 09/29/16 10:46 IMPRESSION: The previously described pleural and parenchymal changes in the left hemithorax are again identified. The previously described non mass in the left upper lobe shows interval increase in size. The right lung remains clear. Other findings as noted above Head CT 09/29/16 10:53 IMPRESSION: MILD CHRONIC CHANGES OF ATROPHY AND MICROVASCULAR ISCHEMIA. NO ACUTE PROCESS. Assessment & Plan - Diagnosis (1) Metastatic lung carcinoma Qualifiers: Laterality: unspecified laterality Qualified Code(s): C78.00 - Secondary malignant neoplasm of unspecified lung Is this a current diagnosis for this admission?: YesPlan: See admitting physician orders. (2) Altered mental status Qualifiers: Altered mental status type: transient alteration of awareness Qualified Code(s): R40.4 - Transient alteration of awareness Is this a current diagnosis for this admission?: YesPlan: See admitting physician orders. (3) Hypokalemia Plan: See admitting physician orders. (4) COPD (chronic obstructive pulmonary disease) Qualifiers: COPD type: unspecified COPD Qualified Code(s): J44.9 - Chronic obstructive pulmonary disease, unspecified Is this a current diagnosis for this admission?: YesPlan: See admitting physician orders. (5) HLD (hyperlipidemia) Qualifiers: Hyperlipidemia type: pure hypercholesterolemia Qualified Code(s): E78.00 - Pure hypercholesterolemia, unspecified; E78.0 - Pure hypercholesterolemia Is this a current diagnosis for this admission?: YesPlan: See admitting physician orders. (6) HTN (hypertension) Qualifiers: Hypertension type: essential hypertension Qualified Code(s): I10 - Essential (primary) hypertension Is this a current diagnosis for this admission?: YesPlan: See admitting physician orders. (7) Hypercalcemia of malignancy Is this a current diagnosis for this admission?: YesPlan: See admitting physician orders. 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
[2016-09-29] MEDS: NORMAL SALINE 1000 ML 1,000 ML IV PRN (22:56)
[2016-09-30] MEDS: LANSOPRAZOLE 30 MG TAB.RAP.DR PO SCH (06:58)
[2016-09-30 07:38] LABS: ABSOLUTE BASOPHILS # (AUTO) 0.1 10^3/uL (0.0-0.2); ABSOLUTE EOSINOPHILS # (AUTO) 0.1 10^3/uL (0.0-0.6); ABSOLUTE LYMPHOCYTES (AUTO) 1.3 10^3/uL (0.5-4.7); ABSOLUTE NEUT (AUTO) 7.6 10^3/uL (1.7-8.2); BASOPHILS % (AUTO) 0.6 % (0-2); EOSINOPHILS % (AUTO) 0.8 % (0-6); HEMATOCRIT 35.4 % (37.9-51.0); HEMOGLOBIN 11.9 g/dL (13.5-17.0); HGB HCT DIFFERENCE 0.3; LYMPHOCYTES % (AUTO) 13.4 % (13-45); MEAN CORPUSCULAR HEMOGLOBIN 29.8 pg (27.0-33.4); MEAN CORPUSCULAR HGB CONC 33.6 g/dL (32.0-36.0); MEAN CORPUSCULAR VOLUME 89 fl (80-97); MONOCYTES % (AUTO) 10.1 % (3-13); RED BLOOD COUNT 3.99 10^6/uL (4.35-5.55); RED CELL DISTRIBUTION WIDTH 16.1 % (11.5-14.0); SEGMENTED NEUTROPHILS % (AUTO) 75.1 % (42-78); WHITE BLOOD COUNT 10.1 10^3/uL (4.0-10.5)
[2016-09-30 08:06] LABS: ALANINE AMINOTRANSFERASE 35 U/L (21-72); ALBUMIN 2.3 g/dL (3.5-5.0); ALKALINE PHOSPHATASE 87 U/L (38-126); ANION GAP 6 (5-19); ASPARTATE AMINO TRANSFERASE 49 U/L (17-59); BILIRUBIN,DIRECT 0.4 mg/dL (0.0-0.4); BILIRUBIN,TOTAL 1.1 mg/dL (0.2-1.3); BLOOD UREA NITROGEN 11 mg/dL (7-20); CALCIUM 10.5 mg/dL (8.4-10.2); CARBON DIOXIDE 24 mmol/L (22-30); CHLORIDE 107 mmol/L (98-107); CREATININE RESULT 1.02 mg/dL (0.52-1.25); GLUCOSE 104 mg/dL (75-110); POTASSIUM 3.5 mmol/L (3.6-5.0); SODIUM 136.8 mmol/L (137-145); TOTAL PROTEIN 6.3 g/dL (6.3-8.2)
[2016-09-30] MEDS: ENOXAPARIN SODIUM INJ 40 MG/0.4 ML DISP.SYRIN SUBCUT SCH (09:44)
[2016-09-30] MEDS: METOPROLOL TARTRATE 25 MG TABLET PO SCH (09:45)
--- NOTE | 2016-09-30 11:09 | RADIOLOGY REPORT (SQ) ---
EXAM DESCRIPTION: MRI HEAD WITHOUT COMPLETED DATE/TIME: 09/30/2016 10:43 am REASON FOR STUDY: Rule out CVA C34.80 MALIGNANT NEOPLASM OF OVRLP SITES OF UNSP BRONCHUS AN COMPARISON: CT 09/29/2016. TECHNIQUE: Multiplanar imaging includes non-contrasted T1, T2, FLAIR, and diffusion with ADC map seq uences. Images stored on PACS. LIMITATIONS: Some of the sequences are up to moderately limited by motion. Overall, mildly limited study. FINDINGS: ANATOMY: No anomalies. Normal vascular flow voids. Pituitary fossa normal. CSF SPACES: Atrophy induced prominence of ventricles and CSF spaces. CEREBRUM: Minimal scattered punctate FLAIR hyperintensities in the white matter. Likely very subtle small vessel disease. No hemorrhage or mass or shift, however. POSTERIOR FOSSA: No signal alteration. No hemorrhage. No edema, masses or mass effect. Internal rosangela tory canals, cerebello-pontine angles, mastoids normal. DIFFUSION IMAGING: Negative for acute or sub-acute infarction. ORBITS: No masses. Globes normal. PARANASAL SINUSES: No fluid levels. Mucosa normal. OTHER: No other significant finding. IMPRESSION: 1. Mild chronic changes. No acute abnormality. No recent CVA detected. TECHNICAL DOCUMENTATION: JOB ID: [id number] [employer]- All Rights Reserved
[2016-09-30] MEDS: BENZONATATE 100 MG CAPSULE PO PRN (13:15)
[2016-09-30] MEDS: IPRATROPIUM/ALBUTEROL 0.5-2.5 MG/3 ML AMPUL NEB PRN (14:45)
[2016-09-30] MEDS: NORMAL SALINE 1000 ML 1,000 ML IV PRN (18:00)
--- NOTE | 2016-09-30 19:11 | PDOC PROGRESS REPORT ---
Subjective Progress Note for:: 09/30/16 Subjective:: Patient continue to demonstrate episodes of confusion and tangent responses. Tolerating oral feeding. No significant breathing. No chest pain, abdominal pain , nausea or vomiting. No fever or chills. Nonproductive coughing persist. MRI brain negative for any significant metastatic disease or acute findings. Physical Exam Vital Signs: Temp Pulse Resp BP Pulse Ox 98.5 F 74 22 H 113/47 L 100 09/30/16 16:15 09/30/16 16:15 09/30/16 16:15 09/30/16 16:15 09/30/16 16:15 Intake & Output 09/29/16 09/30/16 10/01/16 06:59 06:59 06:59 Intake Total 825 558 Output Total 225 Balance 825 333 Weight 88.5 kg General appearance: PRESENT: mild distress - on supplemental oxygen via nasal canula Head exam: PRESENT: atraumatic, normocephalic Eye exam: PRESENT: EOMI, PERRLA Mouth exam: PRESENT: moist, tongue midline Respiratory exam: PRESENT: decreased breath sounds, rhonchi, wheezes Cardiovascular exam: PRESENT: RRR. ABSENT: diastolic murmur, rubs, systolic murmur GI/Abdominal exam: PRESENT: normal bowel sounds, soft. ABSENT: distended, guarding, mass, organolmegaly, rebound, tenderness Extremities exam: ABSENT: pedal edema Musculoskeletal exam: PRESENT: deformity - related to multiple joints involvement with arthritis Neurological exam: PRESENT: altered - with intermittent confusion Psychiatric exam: PRESENT: appropriate affect Skin exam: PRESENT: dry, warm Results Laboratory Results: 09/30/16 07:30 09/30/16 07:30 09/30/16 09/30/16 07:30 07:30 WBC 10.1 RBC 3.99 L Hgb 11.9 L Hct 35.4 L MCV 89 MCH 29.8 MCHC 33.6 RDW 16.1 H Plt Count 133 L Seg Neutrophils % 75.1 Lymphocytes % 13.4 Monocytes % 10.1 Eosinophils % 0.8 Basophils % 0.6 Absolute Neutrophils 7.6 Absolute Lymphocytes 1.3 Absolute Monocytes 1.0 Absolute Eosinophils 0.1 Absolute Basophils 0.1 Sodium 136.8 L Potassium 3.5 L Chloride 107 Carbon Dioxide 24 Anion Gap 6 BUN 11 Creatinine 1.02 Est GFR ( Amer) > 60 Est GFR (Non-Af Amer) > 60 Glucose 104 Calcium 10.5 H Total Bilirubin 1.1 AST 49 ALT 35 Alkaline Phosphatase 87 Total Protein 6.3 Albumin 2.3 L Impressions: Chest X-Ray 09/29/16 10:46 IMPRESSION: The previously described pleural and parenchymal changes in the left hemithorax are again identified. The previously described non mass in the left upper lobe shows interval increase in size. The right lung remains clear. Other findings as noted above Head CT 09/29/16 10:53 IMPRESSION: MILD CHRONIC CHANGES OF ATROPHY AND MICROVASCULAR ISCHEMIA. NO ACUTE PROCESS. Head MRI 09/30/16 00:00 IMPRESSION: 1. Mild chronic changes. No acute abnormality. No recent CVA detected. Assessment & Plan - Diagnosis (1) Metastatic lung carcinoma Qualifiers: Laterality: unspecified laterality Qualified Code(s): C78.00 - Secondary malignant neoplasm of unspecified lung Is this a current diagnosis for this admission?: YesPlan: See attending physician orders. His brain MRI was negative for any acute pathology or metastasis. (2) Altered mental status Qualifiers: Altered mental status type: transient alteration of awareness Qualified Code(s): R40.4 - Transient alteration of awareness Is this a current diagnosis for this admission?: Yes (3) Hypokalemia Plan: See attending physician orders. Follow up on repeat electrolytes result. (4) COPD (chronic obstructive pulmonary disease) Qualifiers: COPD type: unspecified COPD Qualified Code(s): J44.9 - Chronic obstructive pulmonary disease, unspecified Is this a current diagnosis for this admission?: YesPlan: See attending physician orders. (5) HLD (hyperlipidemia) Qualifiers: Hyperlipidemia type: pure hypercholesterolemia Qualified Code(s): E78.00 - Pure hypercholesterolemia, unspecified; E78.0 - Pure hypercholesterolemia Is this a current diagnosis for this admission?: Yes (6) HTN (hypertension) Qualifiers: Hypertension type: essential hypertension Qualified Code(s): I10 - Essential (primary) hypertension Is this a current diagnosis for this admission?: YesPlan: See attending physician orders. (7) Hypercalcemia of malignancy Is this a current diagnosis for this admission?: YesPlan: See attending physician orders. Folow up on repeated electrolytes levle. - Time Time Spent with patient: 25-34 minutes Medications reviewed and adjusted accordingly: Yes Anticipated discharge: Hospice Within: Other - Inpatient Certification Medical Necessity: Need Close Monitoring Due to Risk of Patient Decompensation, Need For IV Fluids, Need For Continuous Telemetry Monitoring, Need for Nebulizer Therapy and Monitoring of Response, Risk of Complication if Not Cared For in Hospital Post Hospital Care: D/C Manufacturing Engineer Supervisor Documentation - Plan Summary Plan Summary: See attending physician orders.
[2016-09-30 19:15] LABS: ABSOLUTE BASOPHILS # (AUTO) 0.1 10^3/uL (0.0-0.2); ABSOLUTE EOSINOPHILS # (AUTO) 0.1 10^3/uL (0.0-0.6); ABSOLUTE LYMPHOCYTES (AUTO) 1.6 10^3/uL (0.5-4.7); ABSOLUTE NEUT (AUTO) 7.4 10^3/uL (1.7-8.2); BASOPHILS % (AUTO) 0.5 % (0-2); EOSINOPHILS % (AUTO) 0.9 % (0-6); HEMATOCRIT 37.2 % (37.9-51.0); HEMOGLOBIN 12.1 g/dL (13.5-17.0); HGB HCT DIFFERENCE -0.9; LYMPHOCYTES % (AUTO) 15.6 % (13-45); MEAN CORPUSCULAR HEMOGLOBIN 29.4 pg (27.0-33.4); MEAN CORPUSCULAR HGB CONC 32.5 g/dL (32.0-36.0); MEAN CORPUSCULAR VOLUME 90 fl (80-97); MONOCYTES % (AUTO) 9.6 % (3-13); RED BLOOD COUNT 4.12 10^6/uL (4.35-5.55); SEGMENTED NEUTROPHILS % (AUTO) 73.4 % (42-78); WHITE BLOOD COUNT 10.1 10^3/uL (4.0-10.5)
[2016-09-30 19:42] LABS: ANION GAP 8 (5-19); BLOOD UREA NITROGEN 11 mg/dL (7-20); CALCIUM 10.4 mg/dL (8.4-10.2); CARBON DIOXIDE 24 mmol/L (22-30); CHLORIDE 105 mmol/L (98-107); CREATININE RESULT 0.97 mg/dL (0.52-1.25); GLUCOSE 124 mg/dL (75-110); POTASSIUM 3.4 mmol/L (3.6-5.0); SODIUM 136.7 mmol/L (137-145)
[2016-09-30] MEDS: POTASSIUM CHLORIDE 10 MEQ TABLET.SA PO SCH (21:29)
[2016-10-01] MEDS: POTASSIUM CHLORIDE 10 MEQ TABLET.SA PO SCH (02:21)
[2016-10-01 06:31] LABS: ANION GAP 5 (5-19); BLOOD UREA NITROGEN 10 mg/dL (7-20); CALCIUM 10.4 mg/dL (8.4-10.2); CARBON DIOXIDE 23 mmol/L (22-30); CHLORIDE 109 mmol/L (98-107); CREATININE RESULT 0.96 mg/dL (0.52-1.25); GLUCOSE 96 mg/dL (75-110); POTASSIUM 4.2 mmol/L (3.6-5.0); SODIUM 136.8 mmol/L (137-145)
--- NOTE | 2016-10-01 06:51 | Physician Advisory Note ---
Physician Advisor ProgressNote .: [facility] medical record for this patient. Physician Advisor Statement: Please consider documentin. Principal Dx - list as Dx #1 in all notes the main reason for adm. 2. "Acute hyponatremia, likely due to ____" 3A. Status: 09/30 note nicely documents some reasons pt still needs hospitalization for a 2nd MN (continued AMS specifics, persistent hypercalcemia ) - Please also document pt's persistent acute hyponatremia, recurrent tachycardia & tachypnea - why they concern attending, & what is being done about them. -> Then should be appropriate to change to Inpt status. 3B. Please also document "IVF being given more cautiously than I otherwise would in this setting, due to underlying chronic diastolic dysfunction grade 1 increasing risk for IVF producing acute pulmonary edema/Ac diast CHF" [ adjusting comment prn based on attg impressions] - That way, reviewers can't say pt was given IVF at relatively slower rate just to prolong hosp adm unnecessarily. Thanks! CK
[2016-10-01] MEDS: LANSOPRAZOLE 30 MG TAB.RAP.DR PO SCH (06:54)
[2016-10-01] MEDS: NORMAL SALINE 1000 ML 1,000 ML IV PRN ×2 (06:55→23:10)
--- NOTE | 2016-10-01 08:26 | PDOC PROGRESS REPORT ---
Subjective Progress Note for:: 10/01/16 Subjective:: Patient continue to demonstrate episodes of confusion and tangent responses. Spouse at bedside reported ongoing confusion for last 5 days. No reported trauma. He remain on supplemental oxygen via nasal canula. Intermittent nonproductive coughing persist. No reported chest pain. No abdominal pain, nausea or vomiting. Tolerating oral feeding. No fever or chills. Physical Exam Vital Signs: Temp Pulse Resp BP Pulse Ox 98.3 F 93 19 124/75 96 10/01/16 07:46 10/01/16 07:46 10/01/16 07:46 10/01/16 07:46 10/01/16 07:46 Intake & Output 09/30/16 10/01/16 10/02/16 06:59 06:59 06:59 Intake Total 825 2016 Output Total 1100 Balance 825 916 Weight 88.5 kg 88.7 kg Physical Exam: General appearance: PRESENT: mild distress - on supplemental oxygen via nasal canula Head exam: PRESENT: atraumatic, normocephalic Eye exam: PRESENT: EOMI, PERRLA Mouth exam: PRESENT: moist, tongue midline Respiratory exam: PRESENT: decreased breath sounds, rhonchi, wheezes Cardiovascular exam: PRESENT: RRR. ABSENT: diastolic murmur, rubs, systolic murmur GI/Abdominal exam: PRESENT: normal bowel sounds, soft. ABSENT: distended, guarding, mass, organomegaly, rebound, tenderness Extremities exam: ABSENT: pedal edema Musculoskeletal exam: PRESENT: deformity - related to multiple joints involvement with arthritis Neurological exam: PRESENT: altered - with intermittent confusion Psychiatric exam: PRESENT: appropriate affect Skin exam: PRESENT: dry, warm Results Laboratory Results: 09/30/16 18:55 10/01/16 05:40 09/30/16 09/30/16 10/01/16 18:55 18:55 05:40 WBC 10.1 RBC 4.12 L Hgb 12.1 L Hct 37.2 L MCV 90 MCH 29.4 MCHC 32.5 RDW 16.0 H Plt Count 127 L Seg Neutrophils % 73.4 Lymphocytes % 15.6 Monocytes % 9.6 Eosinophils % 0.9 Basophils % 0.5 Absolute Neutrophils 7.4 Absolute Lymphocytes 1.6 Absolute Monocytes 1.0 Absolute Eosinophils 0.1 Absolute Basophils 0.1 Sodium 136.7 L 136.8 L Potassium 3.4 L 4.2 Chloride 105 109 H Carbon Dioxide 24 23 Anion Gap 8 5 BUN 11 10 Creatinine 0.97 0.96 Est GFR ( Amer) > 60 > 60 Est GFR (Non-Af Amer) > 60 > 60 Glucose 124 H 96 Calcium 10.4 H 10.4 H Impressions: Chest X-Ray 09/29/16 10:46 IMPRESSION: The previously described pleural and parenchymal changes in the left hemithorax are again identified. The previously described non mass in the left upper lobe shows interval increase in size. The right lung remains clear. Other findings as noted above Head CT 09/29/16 10:53 IMPRESSION: MILD CHRONIC CHANGES OF ATROPHY AND MICROVASCULAR ISCHEMIA. NO ACUTE PROCESS. Head MRI 09/30/16 00:00 IMPRESSION: 1. Mild chronic changes. No acute abnormality. No recent CVA detected. Assessment & Plan - Diagnosis (1) Metastatic lung carcinoma Qualifiers: Laterality: unspecified laterality Qualified Code(s): C78.00 - Secondary malignant neoplasm of unspecified lung Is this a current diagnosis for this admission?: YesPlan: See attending physician orders. His brain MRI was negative for any acute pathology or metastasis. Patient is not a candidate for further chemotherapy intervention. I discussed palliative hospice program placement but patient expressed full code status and spouse is leaving decision to patient's wish. (2) Altered mental status Qualifiers: Altered mental status type: transient alteration of awareness Qualified Code(s): R40.4 - Transient alteration of awareness Is this a current diagnosis for this admission?: YesPlan: See admitting physician orders. There is concern for possible underlying occult infection in view of his U/A and chest X ray findings. (3) Hypokalemia Plan: See attending physician orders. Improved with replacement therapy. (4) COPD (chronic obstructive pulmonary disease) Qualifiers: COPD type: unspecified COPD Qualified Code(s): J44.9 - Chronic obstructive pulmonary disease, unspecified Is this a current diagnosis for this admission?: Yes (5) HLD (hyperlipidemia) Qualifiers: Hyperlipidemia type: pure hypercholesterolemia Qualified Code(s): E78.00 - Pure hypercholesterolemia, unspecified; E78.0 - Pure hypercholesterolemia Is this a current diagnosis for this admission?: Yes (6) HTN (hypertension) Qualifiers: Hypertension type: essential hypertension Qualified Code(s): I10 - Essential (primary) hypertension Is this a current diagnosis for this admission?: Yes (7) Hypercalcemia of malignancy Is this a current diagnosis for this admission?: YesPlan: See attending physician orders. Not severe enough to account for change in his mental status. Follow up on repeated electrolytes level. (8) Hyponatremia Is this a current diagnosis for this admission?: YesPlan: Probably due to her lung disease process. Not severe enough to account for change in his mental status. - Time Time Spent with patient: 25-34 minutes Medications reviewed and adjusted accordingly: Yes Anticipated discharge: Hospice Within: Other - Inpatient Certification Based on my medical assessment, after consideration of the patient's comorbidities, presenting symptoms, or acuity I expect that the services needed warrant INPATIENT care.: Yes I certify that my determination is in accordance with my understanding of Medicare's requirements for reasonable and necessary INPATIENT services [42 CFR 412.3e].: Yes Medical Necessity: Need Close Monitoring Due to Risk of Patient Decompensation, Need For IV Fluids, Need For Continuous Telemetry Monitoring, Need for IV Antibiotics, Risk of Complication if Not Cared For in Hospital Post Hospital Care: D/C Ferry Terminal Agent Documentation - Plan Summary Plan Summary: See attending physician orders.
[2016-10-01] MEDS: ENOXAPARIN SODIUM INJ 40 MG/0.4 ML DISP.SYRIN SUBCUT SCH (09:33)
[2016-10-01] MEDS: RISPERIDONE 0.25 MG TABLET PO SCH ×2 (09:40→18:04)
[2016-10-01] MEDS: METOPROLOL TARTRATE 25 MG TABLET PO SCH (09:40)
[2016-10-01 11:38] LABS: APPEARANCE,URINE CLEAR; BILIRUBIN,URINE NEGATIVE (NEGATIVE); GLUCOSE, URINE NEGATIVE (NEGATIVE); KETONES,URINE NEGATIVE (NEGATIVE); PROTEIN,URINE NEGATIVE (NEGATIVE)
[2016-10-01 11:39] LABS: LEUKOCYTE ESTERASE,URINE NEGATIVE (NEGATIVE); NITRITE,URINE NEGATIVE (NEGATIVE); UROBILINOGEN,URINE NEGATIVE mg/dL (<2.0); WBC,URINE 0-1 /HPF
[2016-10-01] MEDS: DORIPENEM 500 MG in NORMAL SALINE 100 ML IV SCH ×2 (11:42→18:04)
[2016-10-01] MEDS: BENZONATATE 100 MG CAPSULE PO PRN ×2 (12:11→23:01)
[2016-10-02] MEDS: DORIPENEM 500 MG in NORMAL SALINE 100 ML IV SCH ×3 (02:39→18:20)
[2016-10-02] MEDS: LANSOPRAZOLE 30 MG TAB.RAP.DR PO SCH (06:24)
[2016-10-02] MEDS: RISPERIDONE 0.25 MG TABLET PO SCH ×2 (09:03→18:20)
[2016-10-02] MEDS: METOPROLOL TARTRATE 25 MG TABLET PO SCH (09:03)
[2016-10-02] MEDS: ENOXAPARIN SODIUM INJ 40 MG/0.4 ML DISP.SYRIN SUBCUT SCH (09:04)
--- NOTE | 2016-10-02 18:02 | PDOC PROGRESS REPORT ---
Subjective Progress Note for:: 10/02/16 Subjective:: Patient is slightly better in term of lucidness. Appropriate in simple responses and oriented to place person and able to contribute to his situation assessment. He remain on supplemental oxygen via nasal canula. No reported chest pain. No fever or chills. No abdominal pain, nausea or vomiting. Tolerating oral feeding. Physical Exam Vital Signs: Temp Pulse Resp BP Pulse Ox 99.3 F 88 22 H 114/58 L 96 10/02/16 16:01 10/02/16 16:01 10/02/16 16:01 10/02/16 16:01 10/02/16 16:01 Intake & Output 10/01/16 10/02/16 10/03/16 06:59 06:59 06:59 Intake Total 2223 458 Output Total 600 350 Balance 1623 108 Results Laboratory Results: 10/01/16 09:25 Clean Catch Midstream Urine Culture - Final Mixed Urogenital Dary Impressions: Chest X-Ray 09/29/16 10:46 IMPRESSION: The previously described pleural and parenchymal changes in the left hemithorax are again identified. The previously described non mass in the left upper lobe shows interval increase in size. The right lung remains clear. Other findings as noted above Head CT 09/29/16 10:53 IMPRESSION: MILD CHRONIC CHANGES OF ATROPHY AND MICROVASCULAR ISCHEMIA. NO ACUTE PROCESS. Head MRI 09/30/16 00:00 IMPRESSION: 1. Mild chronic changes. No acute abnormality. No recent CVA detected. Assessment & Plan - Diagnosis (1) Altered mental status Qualifiers: Altered mental status type: transient alteration of awareness Qualified Code(s): R40.4 - Transient alteration of awareness Is this a current diagnosis for this admission?: YesPlan: See admitting physician orders. (2) Toxic metabolic encephalopathy Is this a current diagnosis for this admission?: YesPlan: See attending physician orders. (3) Probable sepsis Is this a current diagnosis for this admission?: YesPlan: See attending physician orders. (4) Metastatic lung carcinoma Qualifiers: Laterality: unspecified laterality Qualified Code(s): C78.00 - Secondary malignant neoplasm of unspecified lung Is this a current diagnosis for this admission?: Yes (6) COPD (chronic obstructive pulmonary disease) Qualifiers: COPD type: unspecified COPD Qualified Code(s): J44.9 - Chronic obstructive pulmonary disease, unspecified Is this a current diagnosis for this admission?: Yes (7) HLD (hyperlipidemia) Qualifiers: Hyperlipidemia type: pure hypercholesterolemia Qualified Code(s): E78.00 - Pure hypercholesterolemia, unspecified; E78.0 - Pure hypercholesterolemia Is this a current diagnosis for this admission?: Yes (8) HTN (hypertension) Qualifiers: Hypertension type: essential hypertension Qualified Code(s): I10 - Essential (primary) hypertension Is this a current diagnosis for this admission?: Yes (9) Hypercalcemia of malignancy Is this a current diagnosis for this admission?: Yes (10) Hyponatremia Is this a current diagnosis for this admission?: Yes - Time Time Spent with patient: 25-34 minutes Medications reviewed and adjusted accordingly: Yes Anticipated discharge: Hospice Within: Other - Inpatient Certification Medical Necessity: Need Close Monitoring Due to Risk of Patient Decompensation, Need For Continuous Telemetry Monitoring, Need for Nebulizer Therapy and Monitoring of Response, Need for IV Antibiotics, Risk of Complication if Not Cared For in Hospital Post Hospital Care: D/C Healthcare Account Manager Documentation - Plan Summary Plan Summary: See attending physician orders.
[2016-10-02] MEDS: BENZONATATE 100 MG CAPSULE PO PRN (23:12)
[2016-10-03] MEDS: IPRATROPIUM/ALBUTEROL 0.5-2.5 MG/3 ML AMPUL NEB PRN (00:28)
[2016-10-03] MEDS: DORIPENEM 500 MG in NORMAL SALINE 100 ML IV SCH ×3 (01:32→17:34)
[2016-10-03] MEDS: LANSOPRAZOLE 30 MG TAB.RAP.DR PO SCH (06:24)
[2016-10-03] MEDS: NORMAL SALINE 1000 ML 1,000 ML IV PRN (08:13)
[2016-10-03 09:27] LABS: ABSOLUTE BASOPHILS # (AUTO) 0.1 10^3/uL (0.0-0.2); ABSOLUTE EOSINOPHILS # (AUTO) 0.1 10^3/uL (0.0-0.6); ABSOLUTE LYMPHOCYTES (AUTO) 1.5 10^3/uL (0.5-4.7); ABSOLUTE NEUT (AUTO) 8.7 10^3/uL (1.7-8.2); BASOPHILS % (AUTO) 0.7 % (0-2); EOSINOPHILS % (AUTO) 0.7 % (0-6); HEMATOCRIT 36.2 % (37.9-51.0); HGB HCT DIFFERENCE -0.2; MEAN CORPUSCULAR HEMOGLOBIN 30.1 pg (27.0-33.4); MEAN CORPUSCULAR HGB CONC 33.2 g/dL (32.0-36.0); MEAN CORPUSCULAR VOLUME 91 fl (80-97); MONOCYTES % (AUTO) 8.9 % (3-13); RED BLOOD COUNT 3.99 10^6/uL (4.35-5.55); SEGMENTED NEUTROPHILS % (AUTO) 76.7 % (42-78); WHITE BLOOD COUNT 11.4 10^3/uL (4.0-10.5)
[2016-10-03 09:48] LABS: ANION GAP 9 (5-19); BLOOD UREA NITROGEN 10 mg/dL (7-20); CALCIUM 10.6 mg/dL (8.4-10.2); CARBON DIOXIDE 21 mmol/L (22-30); CHLORIDE 106 mmol/L (98-107); CREATININE RESULT 0.84 mg/dL (0.52-1.25); GLUCOSE 114 mg/dL (75-110); POTASSIUM 4.1 mmol/L (3.6-5.0); SODIUM 136.1 mmol/L (137-145)
[2016-10-03] MEDS: METOPROLOL TARTRATE 25 MG TABLET PO SCH (10:12)
[2016-10-03] MEDS: ENOXAPARIN SODIUM INJ 40 MG/0.4 ML DISP.SYRIN SUBCUT SCH (10:12)
--- NOTE | 2016-10-03 15:01 | PDOC PROGRESS REPORT ---
Subjective Progress Note for:: 10/03/16 Subjective:: He has metastatic Lung Cancer, Admitted with Pneumonia, There is no new complaints, he was seen by the bedside with family Physical Exam Vital Signs: Temp Pulse Resp BP Pulse Ox 98.7 F 56 L 23 H 114/67 100 10/03/16 11:37 10/03/16 11:37 10/03/16 11:37 10/03/16 11:37 10/03/16 11:37 Intake & Output 10/02/16 10/03/16 10/04/16 06:59 06:59 06:59 Intake Total 2223 3143 220 Output Total 600 1025 350 Balance 1623 2118 -130 Weight 88.5 kg General appearance: PRESENT: no acute distress Eye exam: PRESENT: PERRLA Respiratory exam: PRESENT: rales Cardiovascular exam: PRESENT: +S1, +S2 Neurological exam: PRESENT: alert Results Laboratory Results: 10/03/16 09:19 10/03/16 09:19 10/03/16 10/03/16 09:19 09:19 WBC 11.4 H RBC 3.99 L Hgb 12.0 L Hct 36.2 L MCV 91 MCH 30.1 MCHC 33.2 RDW 16.0 H Plt Count 146 L Seg Neutrophils % 76.7 Lymphocytes % 13.0 Monocytes % 8.9 Eosinophils % 0.7 Basophils % 0.7 Absolute Neutrophils 8.7 H Absolute Lymphocytes 1.5 Absolute Monocytes 1.0 Absolute Eosinophils 0.1 Absolute Basophils 0.1 Sodium 136.1 L Potassium 4.1 Chloride 106 Carbon Dioxide 21 L Anion Gap 9 BUN 10 Creatinine 0.84 Est GFR ( Amer) > 60 Est GFR (Non-Af Amer) > 60 Glucose 114 H Calcium 10.6 H 10/01/16 09:25 Clean Catch Midstream Urine Culture - Final Mixed Urogenital Dary Impressions: Chest X-Ray 09/29/16 10:46 IMPRESSION: The previously described pleural and parenchymal changes in the left hemithorax are again identified. The previously described non mass in the left upper lobe shows interval increase in size. The right lung remains clear. Other findings as noted above Head CT 09/29/16 10:53 IMPRESSION: MILD CHRONIC CHANGES OF ATROPHY AND MICROVASCULAR ISCHEMIA. NO ACUTE PROCESS. Head MRI 09/30/16 00:00 IMPRESSION: 1. Mild chronic changes. No acute abnormality. No recent CVA detected. Assessment & Plan - Diagnosis (1) Altered mental status Qualifiers: Altered mental status type: transient alteration of awareness Qualified Code(s): R40.4 - Transient alteration of awareness Is this a current diagnosis for this admission?: Yes (2) Hypercalcemia of malignancy Is this a current diagnosis for this admission?: Yes (4) Hyponatremia Is this a current diagnosis for this admission?: Yes (5) Metastatic lung carcinoma Qualifiers: Laterality: unspecified laterality Qualified Code(s): C78.00 - Secondary malignant neoplasm of unspecified lung Is this a current diagnosis for this admission?: Yes (6) Probable sepsis Is this a current diagnosis for this admission?: Yes (7) Toxic metabolic encephalopathy Is this a current diagnosis for this admission?: Yes
[2016-10-03] MEDS: BENZONATATE 100 MG CAPSULE PO PRN (20:25)
[2016-10-03] MEDS: HYDROCODONE/ACETAMINOPHEN 5-325 MG TABLET PO PRN (20:34)
[2016-10-04] MEDS: NORMAL SALINE 1000 ML 1,000 ML IV PRN ×2 (01:47→18:09)
[2016-10-04] MEDS: DORIPENEM 500 MG in NORMAL SALINE 100 ML IV SCH ×3 (01:47→18:09)
[2016-10-04] MEDS: LANSOPRAZOLE 30 MG TAB.RAP.DR PO SCH (05:58)
[2016-10-04] MEDS: ENOXAPARIN SODIUM INJ 40 MG/0.4 ML DISP.SYRIN SUBCUT SCH (08:09)
[2016-10-04] MEDS: IPRATROPIUM/ALBUTEROL 0.5-2.5 MG/3 ML AMPUL NEB PRN ×3 (08:12→22:18)
[2016-10-04] MEDS: HYDROCODONE/ACETAMINOPHEN 5-325 MG TABLET PO PRN (09:53)
[2016-10-04] MEDS: METOPROLOL TARTRATE 25 MG TABLET PO SCH (09:53)
--- NOTE | 2016-10-04 14:47 | PDOC PROGRESS REPORT ---
Subjective Progress Note for:: 10/04/16 Subjective:: Patient's condition is about the same Physical Exam Vital Signs: Temp Pulse Resp BP Pulse Ox 98.9 F 83 21 H 105/64 97 10/04/16 11:18 10/04/16 11:18 10/04/16 11:18 10/04/16 11:18 10/04/16 11:18 Intake & Output 10/03/16 10/04/16 10/05/16 06:59 06:59 06:59 Intake Total 3143 2280 358 Output Total 1025 550 350 Balance 2118 1730 8 Weight 88.5 kg 95 kg General appearance: PRESENT: no acute distress Eye exam: PRESENT: PERRLA Respiratory exam: PRESENT: crackles Cardiovascular exam: PRESENT: +S1, +S2 GI/Abdominal exam: PRESENT: soft Results Laboratory Results: 10/03/16 09:19 10/03/16 09:19 Impressions: Chest X-Ray 09/29/16 10:46 IMPRESSION: The previously described pleural and parenchymal changes in the left hemithorax are again identified. The previously described non mass in the left upper lobe shows interval increase in size. The right lung remains clear. Other findings as noted above Head CT 09/29/16 10:53 IMPRESSION: MILD CHRONIC CHANGES OF ATROPHY AND MICROVASCULAR ISCHEMIA. NO ACUTE PROCESS. Head MRI 09/30/16 00:00 IMPRESSION: 1. Mild chronic changes. No acute abnormality. No recent CVA detected. Assessment & Plan - Diagnosis (1) Altered mental status Qualifiers: Altered mental status type: transient alteration of awareness Qualified Code(s): R40.4 - Transient alteration of awareness Is this a current diagnosis for this admission?: Yes (2) Hypercalcemia of malignancy Is this a current diagnosis for this admission?: Yes (3) Hypokalemia Is this a current diagnosis for this admission?: Yes (4) Hyponatremia Is this a current diagnosis for this admission?: Yes (5) Metastatic lung carcinoma Qualifiers: Laterality: unspecified laterality Qualified Code(s): C78.00 - Secondary malignant neoplasm of unspecified lung Is this a current diagnosis for this admission?: Yes (6) Probable sepsis Is this a current diagnosis for this admission?: Yes (7) Toxic metabolic encephalopathy Is this a current diagnosis for this admission?: Yes
[2016-10-04] MEDS: NYSTATIN 500000 UNIT/5 ML UDCUP PO SCH (18:09)
[2016-10-04] MEDS: BENZONATATE 100 MG CAPSULE PO PRN (22:04)
[2016-10-05] MEDS: DORIPENEM 500 MG in NORMAL SALINE 100 ML IV SCH ×3 (01:39→17:13)
[2016-10-05] MEDS: IPRATROPIUM/ALBUTEROL 0.5-2.5 MG/3 ML AMPUL NEB PRN ×3 (03:52→18:20)
[2016-10-05] MEDS: LANSOPRAZOLE 30 MG TAB.RAP.DR PO SCH (05:24)
[2016-10-05] MEDS: METOPROLOL TARTRATE 25 MG TABLET PO SCH (09:34)
[2016-10-05] MEDS: ENOXAPARIN SODIUM INJ 40 MG/0.4 ML DISP.SYRIN SUBCUT SCH (09:34)
[2016-10-05] MEDS: NYSTATIN 500000 UNIT/5 ML UDCUP PO SCH ×2 (09:34→17:13)
[2016-10-05] MEDS: NORMAL SALINE 1000 ML 1,000 ML IV PRN (09:39)
--- NOTE | 2016-10-05 19:46 | PDOC PROGRESS REPORT ---
Subjective Progress Note for:: 10/05/16 Subjective:: No reported chest pain or difficulty with breathing. There is reported development of right groin region abscess lesion. No fever or chills. No abdominal pain, nausea or vomiting. Tolerating oral feeding. He remain on IV Doribax coverage. Physical Exam Vital Signs: Temp Pulse Resp BP Pulse Ox 98.4 F 82 16 122/61 96 10/05/16 11:44 10/05/16 18:20 10/05/16 18:20 10/05/16 11:44 10/05/16 11:44 Intake & Output 10/04/16 10/05/16 10/06/16 06:59 06:59 06:59 Intake Total 2280 2303 1125 Output Total 550 800 325 Balance 1730 1503 800 Weight 95 kg 95.7 kg Physical Exam: General appearance: PRESENT: mild distress - on supplemental oxygen via nasal canula Head exam: PRESENT: atraumatic, normocephalic Eye exam: PRESENT: EOMI, PERRLA Mouth exam: PRESENT: moist, tongue midline Respiratory exam: PRESENT: decreased breath sounds, rhonchi, wheezes Cardiovascular exam: PRESENT: RRR. ABSENT: diastolic murmur, rubs, systolic murmur GI/Abdominal exam: PRESENT: normal bowel sounds, soft. ABSENT: distended, guarding, mass, organomegaly, rebound, tenderness Extremities exam: ABSENT: pedal edema Musculoskeletal exam: PRESENT: deformity - related to multiple joints involvement with arthritis Neurological exam: PRESENT: altered - with intermittent confusion Psychiatric exam: PRESENT: appropriate affect Skin exam: PRESENT: dry, warm, right groin region abscess about 2x2 inches, tense , and erythematous in character. Results Laboratory Results: 10/03/16 09:19 10/03/16 09:19 Impressions: Chest X-Ray 09/29/16 10:46 IMPRESSION: The previously described pleural and parenchymal changes in the left hemithorax are again identified. The previously described non mass in the left upper lobe shows interval increase in size. The right lung remains clear. Other findings as noted above Head CT 09/29/16 10:53 IMPRESSION: MILD CHRONIC CHANGES OF ATROPHY AND MICROVASCULAR ISCHEMIA. NO ACUTE PROCESS. Head MRI 09/30/16 00:00 IMPRESSION: 1. Mild chronic changes. No acute abnormality. No recent CVA detected. Assessment & Plan - Diagnosis (1) Altered mental status Qualifiers: Altered mental status type: transient alteration of awareness Qualified Code(s): R40.4 - Transient alteration of awareness Is this a current diagnosis for this admission?: Yes (2) Toxic metabolic encephalopathy Is this a current diagnosis for this admission?: YesPlan: See attending physician orders. There is concern about evening hours agitation suggestive of possible sun downing. I felipa start him on Haloperidol 0.5mg p.o q pm for management of possible delirium related agitation. (3) Probable sepsis Is this a current diagnosis for this admission?: YesPlan: See attending physician orders. Continue IV Doribax coverage. Follow up on surgicalist recommendations. (4) Abscess of groin, right Is this a current diagnosis for this admission?: NoPlan: Maintain on IV Doribax coverage. I will request surgical consultation with surgicalist on duty for possible I&D. (5) Metastatic lung carcinoma Qualifiers: Laterality: unspecified laterality Qualified Code(s): C78.00 - Secondary malignant neoplasm of unspecified lung Is this a current diagnosis for this admission?: YesPlan: See attending physician orders. Patient is not a candidate for further chemotherapy intervention. I discussed palliative hospice program placement but patient expressed full code status and spouse is leaving decision to patient's wish. (6) Hypokalemia Is this a current diagnosis for this admission?: YesPlan: See attending physician orders. Improved with replacement therapy. (7) COPD (chronic obstructive pulmonary disease) Qualifiers: COPD type: unspecified COPD Qualified Code(s): J44.9 - Chronic obstructive pulmonary disease, unspecified Is this a current diagnosis for this admission?: YesPlan: See attending physician orders. (8) HLD (hyperlipidemia) Qualifiers: Hyperlipidemia type: pure hypercholesterolemia Qualified Code(s): E78.00 - Pure hypercholesterolemia, unspecified; E78.0 - Pure hypercholesterolemia Is this a current diagnosis for this admission?: Yes (9) HTN (hypertension) Qualifiers: Hypertension type: essential hypertension Qualified Code(s): I10 - Essential (primary) hypertension Is this a current diagnosis for this admission?: YesPlan: See attending physician orders. (10) Hypercalcemia of malignancy Is this a current diagnosis for this admission?: YesPlan: Persistent low grade hypercalcemia. Continue IV hydration therapy for now. (11) Hyponatremia Is this a current diagnosis for this admission?: YesPlan: Stable. Continue current management. - Time Time Spent with patient: 25-34 minutes Medications reviewed and adjusted accordingly: Yes Anticipated discharge: Hospice Within: Other - Inpatient Certification Based on my medical assessment, after consideration of the patient's comorbidities, presenting symptoms, or acuity I expect that the services needed warrant INPATIENT care.: Yes I certify that my determination is in accordance with my understanding of Medicare's requirements for reasonable and necessary INPATIENT services [42 CFR 412.3e].: Yes Medical Necessity: Need Close Monitoring Due to Risk of Patient Decompensation, Need For IV Fluids, Need For Continuous Telemetry Monitoring, Need for Nebulizer Therapy and Monitoring of Response, Need for IV Antibiotics, Risk of Complication if Not Cared For in Hospital Post Hospital Care: D/C Pig Iron Loader Documentation - Plan Summary Plan Summary: See attending physician orders.
[2016-10-05] MEDS ORDERED: HALOPERIDOL 0.5 MG TABLET PO PRN (19:47)
[2016-10-05] MEDS ORDERED: LIDOCAINE 1% INJ-PF (10 MG/ML) 30 ML SDV ONE (21:03)
[2016-10-05] MEDS: HYDROCODONE/ACETAMINOPHEN 5-325 MG TABLET PO PRN (21:36)
[2016-10-05] MEDS: BENZONATATE 100 MG CAPSULE PO PRN (21:36)
--- NOTE | 2016-10-05 21:48 | OPERATIVE REPORT E ---
Operative Report NAME: KAMINI DIAMOND : 1940 AGE: 76Y DATE OF SURGERY: 10/05/2016 ROOM: 329 PREOPERATIVE DIAGNOSIS: Right perineal abscess. POSTOPERATIVE DIAGNOSIS: Right perineal abscess. OPERATION: Excisional debridement, packing of right perineal abscess. SURGEON: RAMON PONCE M.D. ANESTHESIA: 1% lidocaine plain. COMPLICATIONS: None. ESTIMATED BLOOD LOSS: Scant. DRAINS: None. TISSUE REMOVED: Nonviable skin and subcutaneous tissue. SUMMARY OF PROCEDURE: The patient was placed in the supine position, frogleg, and the scrotum elevated. At the base of the right scrotum to the right of the median raphae was an abscess, 2 x 4 cm. It was prepped with Betadine and anesthetized with 1% lidocaine plain. Surgical plan and surgical timeout were conduction. The abscess was lanced vertically, then an ellipse of skin approximately 3.5 x 2 cm was removed from the surface of the abscess. Underlying subcutaneous tissue and pus debrided with finger dissection, undermining skin flaps minimally. The wound was irrigated with peroxide. Debridement was performed with scissors and knife. Approximately 0.5 gm of nonviable subcutaneous tissue was removed. The patient tolerated the procedure well. Orders for wound irrigation made in the chart. DICTATING PHYSICIAN: RAMON PONCE M.D. [id number] PHY#: [id number] ID: [id number] JOB#: [id number] ACCT: [id number] cc:RAMON PONCE M.D. > [facility]
[2016-10-06] MEDS: NORMAL SALINE 1000 ML 1,000 ML IV PRN (00:48)
[2016-10-06] MEDS: DORIPENEM 500 MG in NORMAL SALINE 100 ML IV SCH ×3 (01:26→18:07)
[2016-10-06 06:21] LABS: ABSOLUTE EOSINOPHILS # (AUTO) 0.1 10^3/uL (0.0-0.6); ABSOLUTE LYMPHOCYTES (AUTO) 1.2 10^3/uL (0.5-4.7); ABSOLUTE MONOCYTES (AUTO) 1.1 10^3/uL (0.1-1.4); ABSOLUTE NEUT (AUTO) 7.8 10^3/uL (1.7-8.2); BASOPHILS % (AUTO) 0.3 % (0-2); EOSINOPHILS % (AUTO) 1.4 % (0-6); HEMATOCRIT 34.1 % (37.9-51.0); HEMOGLOBIN 11.2 g/dL (13.5-17.0); HGB HCT DIFFERENCE -0.5; LYMPHOCYTES % (AUTO) 12.1 % (13-45); MEAN CORPUSCULAR HEMOGLOBIN 29.7 pg (27.0-33.4); MEAN CORPUSCULAR VOLUME 90 fl (80-97); MONOCYTES % (AUTO) 10.5 % (3-13); RED BLOOD COUNT 3.79 10^6/uL (4.35-5.55); RED CELL DISTRIBUTION WIDTH 16.3 % (11.5-14.0); SEGMENTED NEUTROPHILS % (AUTO) 75.7 % (42-78); WHITE BLOOD COUNT 10.3 10^3/uL (4.0-10.5)
[2016-10-06] MEDS: HYDROCODONE/ACETAMINOPHEN 5-325 MG TABLET PO PRN (06:30)
[2016-10-06] MEDS: LANSOPRAZOLE 30 MG TAB.RAP.DR PO SCH (06:30)
[2016-10-06 06:42] LABS: ALANINE AMINOTRANSFERASE 35 U/L (21-72); ALBUMIN 2.2 g/dL (3.5-5.0); ALKALINE PHOSPHATASE 82 U/L (38-126); ANION GAP 6 (5-19); ASPARTATE AMINO TRANSFERASE 46 U/L (17-59); BILIRUBIN,DIRECT 0.4 mg/dL (0.0-0.4); BILIRUBIN,TOTAL 0.8 mg/dL (0.2-1.3); BLOOD UREA NITROGEN 14 mg/dL (7-20); CALCIUM 11.1 mg/dL (8.4-10.2); CARBON DIOXIDE 22 mmol/L (22-30); CHLORIDE 107 mmol/L (98-107); CREATININE RESULT 0.91 mg/dL (0.52-1.25); GLUCOSE 96 mg/dL (75-110); POTASSIUM 4.3 mmol/L (3.6-5.0); SODIUM 135.2 mmol/L (137-145); TOTAL PROTEIN 6.1 g/dL (6.3-8.2)
[2016-10-06] MEDS: ENOXAPARIN SODIUM INJ 40 MG/0.4 ML DISP.SYRIN SUBCUT SCH (09:18)
[2016-10-06] MEDS: METOPROLOL TARTRATE 25 MG TABLET PO SCH (09:19)
[2016-10-06] MEDS: NYSTATIN 500000 UNIT/5 ML UDCUP PO SCH ×2 (09:19→18:06)
--- NOTE | 2016-10-06 18:19 | PDOC PROGRESS REPORT ---
Subjective Subjective:: Post I&D of right perineal region abscess since last clinical evaluation. No reported fever or chills. He remain on IV Doribax coverage. No reported chest pain or difficulty with breathing. No abdominal pain, nausea or vomiting. Tolerating oral feeding. Physical Exam Vital Signs: Temp Pulse Resp BP Pulse Ox 98.4 F 94 22 H 124/60 97 10/06/16 15:12 10/06/16 15:12 10/06/16 11:51 10/06/16 15:12 10/06/16 15:12 Intake & Output 10/05/16 10/06/16 10/07/16 06:59 06:59 06:59 Intake Total 2303 2281 Output Total 800 625 Balance 1503 1656 Weight 95.7 kg 97.1 kg Physical Exam: General appearance: PRESENT: mild distress - on supplemental oxygen via nasal canula Head exam: PRESENT: atraumatic, normocephalic Eye exam: PRESENT: EOMI, PERRLA Mouth exam: PRESENT: moist, tongue midline Respiratory exam: PRESENT: decreased breath sounds, rhonchi, wheezes Cardiovascular exam: PRESENT: RRR. ABSENT: diastolic murmur, rubs, systolic murmur GI/Abdominal exam: PRESENT: normal bowel sounds, soft. ABSENT: distended, guarding, mass, organomegaly, rebound, tenderness Extremities exam: ABSENT: pedal edema Musculoskeletal exam: PRESENT: deformity - related to multiple joints involvement with arthritis Neurological exam: PRESENT: altered - with intermittent confusion Psychiatric exam: PRESENT: appropriate affect Skin exam: PRESENT: dry, warm, status post I&D right perineal abscess with packing in situ. Results Laboratory Results: 10/06/16 05:39 10/06/16 05:39 10/06/16 10/06/16 05:39 05:39 WBC 10.3 RBC 3.79 L Hgb 11.2 L Hct 34.1 L MCV 90 MCH 29.7 MCHC 33.0 RDW 16.3 H Plt Count 145 L Seg Neutrophils % 75.7 Lymphocytes % 12.1 L Monocytes % 10.5 Eosinophils % 1.4 Basophils % 0.3 Absolute Neutrophils 7.8 Absolute Lymphocytes 1.2 Absolute Monocytes 1.1 Absolute Eosinophils 0.1 Absolute Basophils 0.0 Sodium 135.2 L Potassium 4.3 Chloride 107 Carbon Dioxide 22 Anion Gap 6 BUN 14 Creatinine 0.91 Est GFR ( Amer) > 60 Est GFR (Non-Af Amer) > 60 Glucose 96 Calcium 11.1 H Total Bilirubin 0.8 AST 46 ALT 35 Alkaline Phosphatase 82 Total Protein 6.1 L Albumin 2.2 L Impressions: Chest X-Ray 09/29/16 10:46 IMPRESSION: The previously described pleural and parenchymal changes in the left hemithorax are again identified. The previously described non mass in the left upper lobe shows interval increase in size. The right lung remains clear. Other findings as noted above Head CT 09/29/16 10:53 IMPRESSION: MILD CHRONIC CHANGES OF ATROPHY AND MICROVASCULAR ISCHEMIA. NO ACUTE PROCESS. Head MRI 09/30/16 00:00 IMPRESSION: 1. Mild chronic changes. No acute abnormality. No recent CVA detected. Assessment & Plan - Diagnosis (1) Altered mental status Qualifiers: Altered mental status type: transient alteration of awareness Qualified Code(s): R40.4 - Transient alteration of awareness Is this a current diagnosis for this admission?: YesPlan: See admitting physician orders. (2) Toxic metabolic encephalopathy Is this a current diagnosis for this admission?: YesPlan: See attending physician orders. Patient continue to demonstrate intermittent disorientation to place. (3) Probable sepsis Is this a current diagnosis for this admission?: YesPlan: See attending physician orders. Continue IV Doribax coverage. (4) Abscess of groin, right Is this a current diagnosis for this admission?: NoPlan: Status post I&D of right perineal abscess. Maintain on IV Doribax coverage. (5) Metastatic lung carcinoma Qualifiers: Laterality: unspecified laterality Qualified Code(s): C78.00 - Secondary malignant neoplasm of unspecified lung Is this a current diagnosis for this admission?: YesPlan: See attending physician orders. Patient is not a candidate for further chemotherapy intervention. I will continue discussion with patient and spouse regarding palliative hospice program placement. There is a lot of denial regarding his diagnosis and extent of his disease. (6) Hypokalemia Is this a current diagnosis for this admission?: YesPlan: See attending physician orders. Improved with replacement therapy. (7) COPD (chronic obstructive pulmonary disease) Qualifiers: COPD type: unspecified COPD Qualified Code(s): J44.9 - Chronic obstructive pulmonary disease, unspecified Is this a current diagnosis for this admission?: YesPlan: See attending physician orders. (8) HLD (hyperlipidemia) Qualifiers: Hyperlipidemia type: pure hypercholesterolemia Qualified Code(s): E78.00 - Pure hypercholesterolemia, unspecified; E78.0 - Pure hypercholesterolemia Is this a current diagnosis for this admission?: YesPlan: See admitting physician orders. (9) HTN (hypertension) Qualifiers: Hypertension type: essential hypertension Qualified Code(s): I10 - Essential (primary) hypertension Is this a current diagnosis for this admission?: YesPlan: See attending physician orders. (10) Hypercalcemia of malignancy Is this a current diagnosis for this admission?: YesPlan: Persistent hypercalcemia. Continue IV hydration therapy for now. (11) Hyponatremia Is this a current diagnosis for this admission?: YesPlan: Stable. Continue current management. - Time Time Spent with patient: 25-34 minutes Medications reviewed and adjusted accordingly: Yes Anticipated discharge: Hospice Within: Other - Inpatient Certification Medical Necessity: Need Close Monitoring Due to Risk of Patient Decompensation, Need For IV Fluids, Need For Continuous Telemetry Monitoring, Risk of Complication if Not Cared For in Hospital Post Hospital Care: D/C Emergency Department Nurse Documentation - Plan Summary Plan Summary: See attending physician orders.
[2016-10-06] MEDS: IPRATROPIUM/ALBUTEROL 0.5-2.5 MG/3 ML AMPUL NEB PRN (20:59)
[2016-10-06] MEDS: BENZONATATE 100 MG CAPSULE PO PRN (22:49)
[2016-10-07] MEDS: DORIPENEM 500 MG in NORMAL SALINE 100 ML IV SCH ×3 (01:20→17:55)
[2016-10-07] MEDS: NORMAL SALINE 1000 ML 1,000 ML IV PRN (06:16)
[2016-10-07] MEDS: LANSOPRAZOLE 30 MG TAB.RAP.DR PO SCH (06:19)
[2016-10-07] MEDS: METOPROLOL TARTRATE 25 MG TABLET PO SCH (11:02)
[2016-10-07] MEDS: NYSTATIN 500000 UNIT/5 ML UDCUP PO SCH ×2 (11:02→17:53)
[2016-10-07] MEDS: ENOXAPARIN SODIUM INJ 40 MG/0.4 ML DISP.SYRIN SUBCUT SCH (11:21)
[2016-10-07] MEDS: BENZONATATE 100 MG CAPSULE PO PRN (14:21)
--- NOTE | 2016-10-07 18:34 | PDOC PROGRESS REPORT ---
Subjective Progress Note for:: 10/07/16 Subjective:: Patient is more confused today per nursing staff. No reported fever or chills. He remain on IV Doribax coverage. No reported chest pain or difficulty with breathing. No abdominal pain, nausea or vomiting. Poor P.O intake. Physical Exam Vital Signs: Temp Pulse Resp BP Pulse Ox 98.3 F 87 18 103/58 L 94 10/07/16 04:23 10/07/16 16:00 10/07/16 16:00 10/07/16 04:23 10/07/16 16:00 Intake & Output 10/06/16 10/07/16 10/08/16 06:59 06:59 06:59 Intake Total 2281 2260 Output Total 625 250 Balance 1656 2009 Weight 97.1 kg 101 kg Physical Exam: General appearance: PRESENT: mild distress - on supplemental oxygen via nasal canula Head exam: PRESENT: atraumatic, normocephalic Eye exam: PRESENT: EOMI, PERRLA Mouth exam: PRESENT: moist, tongue midline Respiratory exam: PRESENT: decreased breath sounds, rhonchi, wheezes Cardiovascular exam: PRESENT: RRR. ABSENT: diastolic murmur, rubs, systolic murmur GI/Abdominal exam: PRESENT: normal bowel sounds, soft. ABSENT: distended, guarding, mass, organomegaly, rebound, tenderness Extremities exam: ABSENT: pedal edema Musculoskeletal exam: PRESENT: deformity - related to multiple joints involvement with arthritis Neurological exam: PRESENT: altered - with intermittent confusion Psychiatric exam: PRESENT: appropriate affect Skin exam: PRESENT: dry, warm, status post I&D right perineal abscess with packing in situ. Results Laboratory Results: 10/06/16 05:39 10/06/16 05:39 Impressions: Chest X-Ray 09/29/16 10:46 IMPRESSION: The previously described pleural and parenchymal changes in the left hemithorax are again identified. The previously described non mass in the left upper lobe shows interval increase in size. The right lung remains clear. Other findings as noted above Head CT 09/29/16 10:53 IMPRESSION: MILD CHRONIC CHANGES OF ATROPHY AND MICROVASCULAR ISCHEMIA. NO ACUTE PROCESS. Head MRI 09/30/16 00:00 IMPRESSION: 1. Mild chronic changes. No acute abnormality. No recent CVA detected. Assessment & Plan - Diagnosis (1) Altered mental status Qualifiers: Altered mental status type: transient alteration of awareness Qualified Code(s): R40.4 - Transient alteration of awareness Is this a current diagnosis for this admission?: YesPlan: See admitting physician orders. (2) Toxic metabolic encephalopathy Is this a current diagnosis for this admission?: YesPlan: See attending physician orders. Patient continue to demonstrate intermittent disorientation to place. (3) Probable sepsis Is this a current diagnosis for this admission?: YesPlan: See attending physician orders. Continue IV Doribax coverage. (4) Abscess of groin, right Is this a current diagnosis for this admission?: NoPlan: Improving right groin I&D site. Maintain on IV Doribax coverage. (5) Metastatic lung carcinoma Qualifiers: Laterality: unspecified laterality Qualified Code(s): C78.00 - Secondary malignant neoplasm of unspecified lung Is this a current diagnosis for this admission?: YesPlan: See attending physician orders. Request for palliative care consultation. (6) Hypokalemia Is this a current diagnosis for this admission?: YesPlan: See attending physician orders. Improved with replacement therapy. (7) COPD (chronic obstructive pulmonary disease) Qualifiers: COPD type: unspecified COPD Qualified Code(s): J44.9 - Chronic obstructive pulmonary disease, unspecified Is this a current diagnosis for this admission?: YesPlan: See attending physician orders. (8) HLD (hyperlipidemia) Qualifiers: Hyperlipidemia type: pure hypercholesterolemia Qualified Code(s): E78.00 - Pure hypercholesterolemia, unspecified; E78.0 - Pure hypercholesterolemia Is this a current diagnosis for this admission?: YesPlan: See admitting physician orders. (9) HTN (hypertension) Qualifiers: Hypertension type: essential hypertension Qualified Code(s): I10 - Essential (primary) hypertension Is this a current diagnosis for this admission?: YesPlan: See attending physician orders. 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 (11) Hyponatremia Is this a current diagnosis for this admission?: YesPlan: Stable. Continue current management. - Time Time Spent with patient: 25-34 minutes Medications reviewed and adjusted accordingly: Yes Anticipated discharge: Hospice Within: Other - Inpatient Certification Based on my medical assessment, after consideration of the patient's comorbidities, presenting symptoms, or acuity I expect that the services needed warrant INPATIENT care.: Yes I certify that my determination is in accordance with my understanding of Medicare's requirements for reasonable and necessary INPATIENT services [42 CFR 412.3e].: Yes Medical Necessity: Need Close Monitoring Due to Risk of Patient Decompensation, Need For IV Fluids, Need For Continuous Telemetry Monitoring, Need for IV Antibiotics, Risk of Diagnosis Which Will Require Inpatient Eval/Care/Monitoring Post Hospital Care: D/C Accounting Manager Controller Documentation - Plan Summary Plan Summary: Continue current antibiotic coverage. I will request palliative consultation to meet with spouse and enlighten more about available care plan.
[2016-10-08] MEDS: DORIPENEM 500 MG in NORMAL SALINE 100 ML IV SCH (02:55)
[2016-10-08] MEDS: LANSOPRAZOLE 30 MG TAB.RAP.DR PO SCH (05:53)
[2016-10-08] MEDS: IPRATROPIUM/ALBUTEROL 0.5-2.5 MG/3 ML AMPUL NEB PRN ×2 (06:36→11:37)
--- NOTE | 2016-10-08 08:11 | PDOC PROGRESS REPORT ---
Subjective Progress Note for:: 10/08/16 Subjective:: Spouse at bedside reported overall good night. Aware of palliative consult and awaiting meeting later today. No reported fever or chills. He remain on IV Doribax coverage with intent to transfer to oral antibiotic for right groin abscess upon discharge. No reported chest pain or difficulty with breathing. No abdominal pain, nausea or vomiting. Poor P.O intake. Physical Exam Vital Signs: Temp Pulse Resp BP Pulse Ox 99.5 F 103 H 22 H 119/74 99 10/07/16 19:47 10/08/16 07:00 10/08/16 06:36 10/07/16 19:47 10/07/16 19:47 Intake & Output 10/07/16 10/08/16 10/09/16 06:59 06:59 06:59 Intake Total 2260 1825 Output Total 250 Balance 2009 1824 Weight 101 kg 91.7 kg Physical Exam: General appearance: PRESENT: mild distress - on supplemental oxygen via nasal canula Head exam: PRESENT: atraumatic, normocephalic Eye exam: PRESENT: EOMI, PERRLA Mouth exam: PRESENT: moist, tongue midline Respiratory exam: PRESENT: decreased breath sounds, rhonchi, wheezes Cardiovascular exam: PRESENT: RRR. ABSENT: diastolic murmur, rubs, systolic murmur GI/Abdominal exam: PRESENT: normal bowel sounds, soft. ABSENT: distended, guarding, mass, organomegaly, rebound, tenderness Extremities exam: ABSENT: pedal edema Musculoskeletal exam: PRESENT: deformity - related to multiple joints involvement with arthritis Neurological exam: PRESENT: altered - with intermittent confusion Psychiatric exam: PRESENT: appropriate affect Skin exam: PRESENT: dry, warm, status post I&D right perineal abscess with packing in situ. Results Laboratory Results: 10/06/16 05:39 10/06/16 05:39 Impressions: Chest X-Ray 09/29/16 10:46 IMPRESSION: The previously described pleural and parenchymal changes in the left hemithorax are again identified. The previously described non mass in the left upper lobe shows interval increase in size. The right lung remains clear. Other findings as noted above Head CT 09/29/16 10:53 IMPRESSION: MILD CHRONIC CHANGES OF ATROPHY AND MICROVASCULAR ISCHEMIA. NO ACUTE PROCESS. Head MRI 09/30/16 00:00 IMPRESSION: 1. Mild chronic changes. No acute abnormality. No recent CVA detected. Assessment & Plan - Diagnosis (1) Altered mental status Qualifiers: Altered mental status type: transient alteration of awareness Qualified Code(s): R40.4 - Transient alteration of awareness Is this a current diagnosis for this admission?: Yes (2) Toxic metabolic encephalopathy Is this a current diagnosis for this admission?: Yes (3) Probable sepsis Is this a current diagnosis for this admission?: Yes (4) Abscess of groin, right Is this a current diagnosis for this admission?: No (5) Metastatic lung carcinoma Qualifiers: Laterality: unspecified laterality Qualified Code(s): C78.00 - Secondary malignant neoplasm of unspecified lung Is this a current diagnosis for this admission?: Yes (6) Hypokalemia Is this a current diagnosis for this admission?: Yes (7) COPD (chronic obstructive pulmonary disease) Qualifiers: COPD type: unspecified COPD Qualified Code(s): J44.9 - Chronic obstructive pulmonary disease, unspecified Is this a current diagnosis for this admission?: Yes (8) HLD (hyperlipidemia) Qualifiers: Hyperlipidemia type: pure hypercholesterolemia Qualified Code(s): E78.00 - Pure hypercholesterolemia, unspecified; E78.0 - Pure hypercholesterolemia Is this a current diagnosis for this admission?: Yes (9) HTN (hypertension) Qualifiers: Hypertension type: essential hypertension Qualified Code(s): I10 - Essential (primary) hypertension Is this a current diagnosis for this admission?: Yes (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
[2016-10-08] MEDS: ENOXAPARIN SODIUM INJ 40 MG/0.4 ML DISP.SYRIN SUBCUT SCH (08:22)
[2016-10-08] MEDS: METOPROLOL TARTRATE 25 MG TABLET PO SCH (10:17)
[2016-10-08] MEDS: NYSTATIN 500000 UNIT/5 ML UDCUP PO SCH ×2 (10:20→17:30)
[2016-10-08] MEDS: BENZONATATE 100 MG CAPSULE PO PRN (17:40)
[2016-10-08] MEDS: NORMAL SALINE 1000 ML 1,000 ML IV PRN (17:41)
--- NOTE | 2016-10-08 23:21 | Palliative Consultation Report ---
Consultation From:: TIFFANY KEENE - [facility] HPI: Palliative care Visit 9:15- 10:00 AM 10/08/16 Appreciate palliative consult with this 76 year old man who was admitted from home for altered mental status. He has been diagnosed with small cell lung cancer. Dr. Prasad is his oncologist and she has told him that there is no more chemo or other treatment to offer at this time. CT head and other tests were done on admission to check for CVA or brain metastasis, but neither were found. I spoke with Mrs. Ellison last night to make appointment to meet her in the hospital today. She was planning on staying over night with him and did do so. At present, Mr. Ellison is still confused, but knows his and knows he is in the hospital. She reports that he is supposed to be discharged tomorrow. She has refused home health when senior materials planner offered it. She refused hospice when I discussed it on the telephone last night. During my visit we discussed her health and back problems as well as his increased weakness and increased level for care. We discussed that home health could sned physial therapist to help patietn with stengthening if possible and also provide her some help for bathing etc. Although patient is on megace, he is still not eating much and grows weaker daily. Before this hospitalization, she was able to take patient to the shower, but she realizes that this will not be possible now. after much discussion, she agreed to talk with senior materials planner about having home health. In addition, we discussed the reality of his code status, what CPR and artificial ventilation ntails and the fact that if he is placed on a ventilator , it will not help his disease or his lungs and most likely she will have to make decision of when to have it removed. We discussed MOST form and I gave her one to review. SHe is allowing patient to make these decisions, but I explained to her that he cannot understand well enough at this point to make a good decision. Onset: Just prior to arrival Onset/Duration: Gradual Associated Symptoms: Shortness of breath Past Medical History(Consults) - General Information Source: Relative, [facility] Records Home Medications: Benzonatate [Tessalon Perle 100 mg Capsule] 100 mg PO Q8HP PRN 09/29/16 Furosemide [Lasix 20 mg Tablet] 20 mg PO DAILYP PRN 09/29/16 Ipratropium/Albuterol Sulfate [Duoneb 3 ml Ampul] 3 ml NEB RTQIDP PRN 09/29/16 Meclizine HCl [Antivert 25 mg Tablet] 25 mg PO Q6HP PRN 09/29/16 Metoprolol Tartrate [Lopressor 25 mg Tablet] 12.5 mg PO DAILY 09/29/16 Allergies/Adverse Reactions: aspirin [Aspirin] Allergy (Unknown, Verified 02/25/16 16:37) acetaminophen [From Percocet] Allergy (Verified 02/26/16 02:01) oxycodone [From Percocet] Allergy (Verified 02/26/16 02:01) - Social History Lives with: Spouse/Significant other Family History: Reviewed & Not Pertinent Parental Family History Reviewed: No Children Family History Reviewed: No Sibling(s) Family History Reviewed.: No Smoking Status: Former Smoker Frequency of Alcohol Use: None Hx Recreational Drug Use: No Hx Prescription Drug Abuse: No - Past Medical History Cardiac Medical History: Reports: Hx Hypercholesterolemia, Hx Hypertension Pulmonary Medical History: Reports: Hx COPD Neurological Medical History: Denies: Hx Seizures Malignancy Medical History: Reports Hx Lung Cancer - dx mar 2014 Musculoskeltal Medical History: Reports Hx Muscle Weakness Psychiatric Medical History: Reports: Hx Anxiety - Surgical History Past Surgical History: Reports: Hx Cholecystectomy, Hx Orthopedic Surgery - Knee Review of systems ROS unobtainable: due to mental statu Constitutional: Weakness Neurological/Psychological: Confusion Ojective:Exam Vital Signs: Temp Pulse Resp BP Pulse Ox 98.8 F 99 18 119/67 96 10/08/16 22:20 10/08/16 22:20 10/08/16 22:20 10/08/16 22:20 10/08/16 22:20 Intake & Output 10/07/16 10/08/16 10/09/16 06:59 06:59 06:59 Intake Total 2259 1825 868 Output Total 2009 868 Weight 101 kg 91.7 kg - General General Appearance: Anxious, Sleeping/easily aroused, Sedated In distress: None - IN bed, drowsy. Confused at times, speech weak. When trying to eat could only tolerate very small bites and had to be encouraged to swallow. Ate very little, drank glass juice. Some coughing noted after eating. fed patient - HEENT Head: Atraumatic Eyes: Normal Conjunctiva: Normal Mucous membrane: Moist - Respiratory Respiratory Status: No respiratory distress Breath sounds: Rhonchi - Cardiovascular Heart Sounds: S1 appreciated, S2 appreciated Pulses: Normal: Radial - Abdominal Inspection: Normal Distension: No distension Bowel Sounds: Normal - Extremities Upper extremity: Normal inspection - Neurological Cognition: Short term memory loss Orientation: Oriented to person, Oriented to place Cranial nerves: Normal Motor exam: Weakness - Psychological Associated symptoms: Irritable Objective-Diagnostic Laboratory: 10/06/16 05:39 10/06/16 05:39 Plan and Recommendation Plan and Recommendation: As above. Discussed code status and encouraged patietn to talk further with doctor. MOST form given to for her consideration. She states she understands that patient is not really able to make these decisions at this point. Discussed and encouraged her to accept home health PT and nursing visits. She is adamant that she does not want hospice. Offered home Palliative visits if orders it. She was agreeable for this. No symptoms noted that require additional meds or changes at this time. Discussed with senior materials planner. Thank you for allowing me to participate in care of this patient and support his exhausted . - Time Spent with Patient Time spent with patient: 40 to 60 Minutes Greater then 50% spent on Counseling & Coordination of Care: 40 minutes with patient and , 20 min chart review and consultation.
[2016-10-09] MEDS: BENZONATATE 100 MG CAPSULE PO PRN ×2 (01:19→09:50)
[2016-10-09] MEDS: LANSOPRAZOLE 30 MG TAB.RAP.DR PO SCH (06:21)
[2016-10-09] MEDS: NORMAL SALINE 1000 ML 1,000 ML IV PRN (06:25)
[2016-10-09] MEDS: IPRATROPIUM/ALBUTEROL 0.5-2.5 MG/3 ML AMPUL NEB PRN ×2 (06:37→14:28)
[2016-10-09] MEDS: ENOXAPARIN SODIUM INJ 40 MG/0.4 ML DISP.SYRIN SUBCUT SCH (07:59)
[2016-10-09] MEDS: NYSTATIN 500000 UNIT/5 ML UDCUP PO SCH (09:49)
[2016-10-09] MEDS: METOPROLOL TARTRATE 25 MG TABLET PO SCH (09:50)
--- NOTE | 2016-10-09 15:59 | PDOC DISCHARGE SUMMARY ---
General - Admit/Disc Date/PCP Admission Date/Primary Care Provider: 10/01/16 08:12 JAMAL TORRES Discharge Date: 10/09/16 - Discharge Diagnosis (1) Altered mental status Is this a current diagnosis for this admission?: Yes (2) Toxic metabolic encephalopathy Is this a current diagnosis for this admission?: Yes (3) Probable sepsis Is this a current diagnosis for this admission?: Yes (4) Abscess of groin, right Is this a current diagnosis for this admission?: No (5) Metastatic lung carcinoma Is this a current diagnosis for this admission?: Yes (6) Hypokalemia Is this a current diagnosis for this admission?: Yes (7) COPD (chronic obstructive pulmonary disease) Is this a current diagnosis for this admission?: Yes (8) HLD (hyperlipidemia) Is this a current diagnosis for this admission?: Yes (9) HTN (hypertension) Is this a current diagnosis for this admission?: Yes (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 Discharge Diet: Regular Discharge Activity: Activity As Tolerated Home Medications: Furosemide [Lasix 20 mg Tablet] 20 mg PO DAILYP PRN 09/29/16 Ipratropium/Albuterol Sulfate [Duoneb 3 ml Ampul] 3 ml NEB RTQIDP PRN 09/29/16 Meclizine HCl [Antivert 25 mg Tablet] 25 mg PO Q6HP PRN 09/29/16 Benzonatate [Tessalon Perle 100 mg Capsule] 100 mg PO Q8HP PRN #60 capsule 10/09 Haloperidol [Haldol 0.5 mg Tablet] 0.5 mg PO QPMP PRN #30 tablet 10/09/16 Metoprolol Tartrate [Lopressor 25 mg Tablet] 12.5 mg PO BID #60 tablet 10/09/16 Nystatin [Mycostatin 500,000 Unit/5 ml Susp Udcup] 500,000 unit PO BID #20 udc 10/09/16 History of Present Illness History of Present Illness: KAMINI DIAMOND is a 76 year old male known to my practice who presented to ED with complain of progressive altered mental status oer last couple of days. Patient has history of lung cancer with recent PET scan suggestive of multi- organ metastases. Spouse reported reported episodes of auditory hallucination and disorientation. There has been multiple episodes of fall over the last 3 days with associated ambulatory difficulty. Spouse reported 2 person assistance. No significant sputum production. No associated fever or chills. No chest pain. His appetite and p.o intake did show some improvement with recent use of Megace and liberal food choices. No abdominal pain, nausea, vomiting, or diarrhea. There is associated constipation. She was seen at Dr. Prasad's office earlier today with reported witnessed slurred speech and confusion. He was subsequently referred to the ED for further evaluation and management. His initial assessment revealed uneventful Head CAT scan, slightly elevated serum calcium level. His comorbidites include hypertension and Hyperlipidemia. He was advised admission to observation bed for further evaluation and management for possible TIA versus brain metastasis in view of his metastatic lung cancer. Hospital Course Hospital Course: Patient continue to domonstrate intermittent episodes of confusion and generalized debility. His CT scan and MRI of the brain did not revealed any metastatic disease. Patient's culture was unrevealing during this hospitalization. There was initial concern for possible sepsis. He was adequately covered with IV Doribax. Further evaluation did revealed right groin/ perineal section abscess that was eventually lanced by surgicalist. Surgical wound is looking is healing very satisfactorily. Spouse eventually requested to make patient a DO NO INTUBATE STATUS.His blood culture was no growth and urine culture eventually grew mixed urogenital organism. Adjustment was made to him medication with addition of haloperidol 0.5mg qhs to address his presumed sun downing and agitation.He will continue on all his preadmission medication. He is been discharged into palliative care with Home health agency due to his end stage COPD and metastatic lung cancer. I discussed case with Dr Prasad his medical oncologist and patient is no longer a candidate for chemotherapy or any other form of active curative treatment. Follow up in the office may be difficult for the patient due to his overall generalized de-conditioning and end stage disease process. Physical Exam Vital Signs: Temp Pulse Resp BP Pulse Ox 98.7 F 106 H 22 H 110/73 94 10/09/16 11:39 10/09/16 14:28 10/09/16 14:28 10/09/16 11:39 10/09/16 14:28 Intake & Output 10/08/16 10/09/16 10/10/16 06:59 06:59 06:59 Intake Total 1825 1858 646 Balance 1825 1858 646 Weight 91.7 kg 92.4 kg Physical Exam: General appearance: PRESENT: mild distress - on supplemental oxygen via nasal canula Head exam: PRESENT: atraumatic, normocephalic Eye exam: PRESENT: EOMI, PERRLA Mouth exam: PRESENT: moist, tongue midline Respiratory exam: PRESENT: decreased breath sounds, rhonchi, wheezes Cardiovascular exam: PRESENT: RRR. ABSENT: diastolic murmur, rubs, systolic murmur GI/Abdominal exam: PRESENT: normal bowel sounds, soft. ABSENT: distended, guarding, mass, organomegaly, rebound, tenderness Extremities exam: ABSENT: pedal edema Musculoskeletal exam: PRESENT: deformity - related to multiple joints involvement with arthritis Neurological exam: PRESENT: altered - with intermittent confusion Psychiatric exam: PRESENT: appropriate affect Skin exam: PRESENT: dry, warm, status post I&D right perineal abscess with packing in situ. Results Laboratory Results: 10/06/16 05:39 10/06/16 05:39 Impressions: Chest X-Ray 09/29/16 10:46 IMPRESSION: The previously described pleural and parenchymal changes in the left hemithorax are again identified. The previously described non mass in the left upper lobe shows interval increase in size. The right lung remains clear. Other findings as noted above Head CT 09/29/16 10:53 IMPRESSION: MILD CHRONIC CHANGES OF ATROPHY AND MICROVASCULAR ISCHEMIA. NO ACUTE PROCESS. Head MRI 09/30/16 00:00 IMPRESSION: 1. Mild chronic changes. No acute abnormality. No recent CVA detected. Qualifiers PATEINT BEING DISCHARGED WITH ANY OF THE FOLLOWING DIAGNOSIS?: No Plan Discharge Plan: Patient was made a [id number] before discharge as per spouse request. I did signed 3 copies of [place] form with one form on the chart and 2 copies to take home. One to be placed conspicuously at home and the 3rd for travel. Time Spent: Greater than 30 Minutes
[2016-10-09 16:01] VITALS: BP 103/52
== END 2016-10-09 17:54 | disposition home health service (06) | DRG 40 ==
LOC: ER 10:31 → EH 14:05 → 4N 15:50 → 3S 20:00 → OBSVTOIN 10-01 08:12
PROVIDERS: ADMIT Internal Medicine Geriatric Medicine; ATTEND Internal Medicine Geriatric Medicine
PROC: 0JBB0ZZ Excision of Perineum Subcutaneous Tissue and Fascia, Open Approach (ICD-10-PCS; principal; 2016-10-05)
DX: G92 Toxic encephalopathy (principal); A41.9 Sepsis, unspecified organism; L02.214 Cutaneous abscess of groin; E87.1 Hypo-osmolality and hyponatremia; C79.9 Secondary malignant neoplasm of unspecified site; F05 Delirium due to known physiological condition; E87.6 Hypokalemia; J44.9 Chronic obstructive pulmonary disease, unspecified; E78.5 Hyperlipidemia, unspecified; E78.00 Pure hypercholesterolemia, unspecified; E83.52 Hypercalcemia; I10 Essential (primary) hypertension; Z51.5 Encounter for palliative care; Z66 Do not resuscitate; Z79.899 Other long term (current) drug therapy; Z85.118 Personal history of other malignant neoplasm of bronchus and lung; Z90.49 Acquired absence of other specified parts of digestive tract; Z87.891 Personal history of nicotine dependence; Z88.6 Allergy status to analgesic agent; Z88.8 Allergy status to other drugs, medicaments and biological substances
CPT/HCPCS: 36415; 51701; 70450; 70551; 71010; 80048; 80053; 81001; 82553; 83605; 83690; 83735; 84484; 85025; 87040; 87086; 93005; 93010; 94640; 99291; G0378; G8978-GP; G8979-GP; J1267; J1650; J3490; J7030; J7620